=== PATIENT | female | born 1945 | race Caucasian/White ===

== ENCOUNTER 2020-02-13 09:02 | Outpatient (CLI) | payer MEDICARE, SELFPAY ==
--- NOTE | ~2020-02-13 | MM_ITS ---
EXAMINATION: MM screening mary BI w carrie HISTORY: Screening mammogram TECHNIQUE: Craniocaudal and mediolateral oblique 3-D tomosynthesis images were obtained and synthetic 2-D images were generated. CAD analysis was submitted and interpreted. COMPARISON: 09/12/2018, 11/27/2016, 10/09/2015 bilateral digital screening mammogram examinations BREAST PARENCHYMAL COMPOSITION: There are scattered areas of fibroglandular density. FINDINGS: Benign appearing circumscribed small intramammary lymph nodes are noted on the right. There is no evidence of suspicious mass, calcification, or architectural distortion to suggest malignancy in either breast. There has been no suspicious interval change. IMPRESSION: 1. No mammographic evidence of malignancy. 2. Recommend routine screening mammography in one year. BI-RADS Category 2: Benign finding(s). Reviewed, dictated and finalized at location A.
== END 2020-02-13 09:03 | disposition home or self-care (01) ==
LOC: ANHIMG 09:12
DX: Z12.31 Encounter for screening mammogram for malignant neoplasm of breast (principal)
CPT/HCPCS: 77063; 77067

== ENCOUNTER 2021-09-02 08:55 | Outpatient (CLI) | payer MEDICARE, SELFPAY ==
--- NOTE | ~2021-09-02 | MM_ITS ---
EXAMINATION: MM screening mary BI w carrie HISTORY: Screening TECHNIQUE: Craniocaudal and mediolateral oblique 3-D tomosynthesis images were obtained and synthetic 2-D images were generated. CAD analysis was submitted and interpreted. COMPARISON: Comparison to multiple prior studies sequentially, with oldest reviewed study dated 09/12. BREAST PARENCHYMAL COMPOSITION: There are scattered areas of fibroglandular density. FINDINGS: There is no evidence of suspicious mass, calcification, or architectural distortion to sugg est malignancy in either breast. There has been no suspicious interval change. IMPRESSION: 1. No mammographic evidence of malignancy. 2. Recommend routine screening mammography in one year. BI-RADS Category 1: Negative Reviewed, dictated and finalized at location A. TAL ADVERTISING SPECIALIST
== END 2021-09-02 08:56 | disposition home or self-care (01) ==
LOC: ANHIMG 08:58
PROVIDERS: Visit Provider Internal Medicine
DX: Z12.31 Encounter for screening mammogram for malignant neoplasm of breast (principal)
CPT/HCPCS: 77063; 77067

== ENCOUNTER 2023-03-19 10:02 | Outpatient (CLI) | payer MEDICARE, SELFPAY ==
--- NOTE | ~2023-03-19 | MM_ITS ---
EXAMINATION: MM screening mary BI w carrie HISTORY: Screening TECHNIQUE: Craniocaudal and mediolateral oblique 3-D tomosynthesis images were obtained and synthetic 2-D images were generated. CAD analysis was submitted and interpreted. COMPARISON: Comparison to multiple prior studies sequentially, with oldest reviewed study dated 09/18. BREAST PARENCHYMAL COMPOSITION: There are scattered areas of fibroglandular density. FINDINGS: There is no evidence of suspicious mass, calcification, or architectural distortion to sugg est malignancy in either breast. There has been no suspicious interval change. IMPRESSION: 1. No mammographic evidence of malignancy. 2. Recommend routine screening mammography in one year. BI-RADS Category 1: Negative Reviewed, dictated and finalized at location A.
== END 2023-03-19 10:03 | disposition home or self-care (01) ==
LOC: ANHIMG 10:05
PROVIDERS: PCP Internal Medicine; Visit Provider Internal Medicine
DX: Z12.31 Encounter for screening mammogram for malignant neoplasm of breast (principal)
CPT/HCPCS: 77063; 77067

== ENCOUNTER 2024-07-28 08:08 | Outpatient (CLI) | payer MEDICARE, SELFPAY ==
--- NOTE | ~2024-07-28 | MM_ITS ---
EXAMINATION: MM screening [facility] carrie HISTORY: Screening TECHNIQUE: Craniocaudal and mediolateral oblique 3-D tomosynthesis images were obtained and synthetic 2-D images were generated. CAD analysis was submitted and interpreted. COMPARISON: Comparison to multiple prior studies sequentially, with oldest reviewed study dated 10/08. BREAST PARENCHYMAL COMPOSITION: Not dense: There are scattered areas of fibroglandular density. FINDINGS: There is no evidence of suspicious mass, calcification, or architectural distortion to sugg est malignancy in either breast. There has been no suspicious interval change. IMPRESSION: 1. No mammographic evidence of malignancy. 2. Recommend routine screening mammography in one year. BI-RADS Category 1: Negative Reviewed, dictated and finalized at location A. MANAGER
--- OUTSIDE RECORDS SUMMARY | 2024-07-28 08:21 | XMS_ITS | Continuity of Care Document ---
Author Organization [facility] Address [address] [place] [address] [address] [place] [address] Phone Care Team Providers Care Technical Program Manager Name Role Phone Pancho Hoang MD, MD Unavailable Unavailable Procedures Procedure Date YAG PC AFTER CATARACT LASER SURGERY AFTER CATARACT LASER SURGERY EYE EXAM & TREATMENT DILATED EXAM RIGHT EYE DILATED EXAM LEFT EYE CATARACT SURG W/IOL, 1 STAGE CATARACT SURG W/IOL, 1 STAGE OFFICE/OUTPATIENT VISIT, NEW OPHTHALMIC BIOMETRY OPHTHALMIC BIOMETRY SPECIAL EYE EXAM, INITIAL SPECIAL EYE EXAM, INITIAL Advance Directives Directive Yes / No Effective Date File Name No Information Encounters Encounter Description Practice Location Reason(s) For Visit Diagnoses Date Provider Providers Copied on Encounter Ophthalmology [facility], [address] [place] [address], [id number], tel:[phone] [address] [place] [address] No Information 6 Natalya Deleon. [address], [address], [place], [place], [id number] , [place]. tel:[phone] Referring Provider: Pancho Hall, [address], [place], [place], [id number]. tel:[phone] Op[facility]mology [facility], [address] [place] [address], [place], [place], [id number], tel:[phone] [address] [place] [address] No Information 5 Natalya Deleon. [address], [place], [place], [id number] , [place]. tel:[phone] Referring Provider: Pancho Hall, [address], [place], [place], [id number]. tel:[phone] [facility], [address] [place] [address], [id number], tel:[phone] 478 [facility] No Information 5 Natalya Deleon. [address], [address], [place], [place], [id number] , [place]. tel:[phone] Referring Provider: Pancho Hall, [address], [place], [place], [id number]. tel:[phone] [facility], [address] [place] [address], [id number], [place] tel:[phone] [facility] No Information 4 Natalya Deleon. [address], [place], [place], [id number] , [place]. tel:[phone] Referring Provider: Pancho Hall, [address], [place], [place], [id number]. tel:[phone] [facility], [address] [place] [address], [place], [id number], [place] tel:[phone] [facility] No Information 4 Natalya Deleon. [address], [place], [place], [id number] , [place]. tel:[phone] Referring Provider: Pancho Hall, [address], [place], [place], [id number]. tel:[phone] OFFICE/OUTPA TIENT VISIT, [facility], [address] [place] [address], [id number], [place] tel:[phone] [facility] No Information 4 Natalya Deleon. [address], [place], [place], [id number] , [place]. tel:[phone] Referring Provider: Pancho Hoang MD P, [address], [place], [place], [id number]. tel:[phone] Family History Family Member Type Diagnosis Age At Onset No Information Payers Payer name Insurance type Covered constitution party ID Authorlilliama borisquique(s) [facility] [id number] Social History Type Description Quantity Date Captured Comments Sex Female Smoking Status No Information Chief Complaint And Reason For Visit No Information Plan Of Treatment Date Type Action Status No Information History Of Present Illness Encounter Date Complaint History Of Prese nt Illness No Information Instructions Date Instruction Additional Infor mation No Information Assessments Type Assessment Date No Information
--- OUTSIDE RECORDS SUMMARY | 2024-07-28 08:21 | XMS_ITS | Clinical Summary ---
Author Organization [facility] Address [address] [facility] [place] [address] Care Team Providers Care Legal Counsel Name Role Phone Miya Meeks MD Primary Care Provider [phone] Source Comments [facility],non-owned Affiliates and Associated Physician Practices is amultiple site organization consisting of ambulatory clinics and hospital sitesin [place], [place], [place] and [place]. This disclosure is being madepursuant to the Care Everywhere program and may not contain all information available regarding this patient. Last updated 18.[facility] Allergies Active Allergy Reactions Criticality Noted Date Comments Meperidine Itching 10/08/2010 Nsaids GI Discomfort 10/08/2010 Penicillins Unknown 10/08/2010 Medications * Be aware that medications may not be up to date on this document. Alwaysverify current medications with the patient. Medication Sig Dispensed Refills Start Date End Date Status irbesartan (AVAPRO) 300 MG tablet Take 1 (one) tablet by mouth once daily Instructed to take AM of surgery Active triamterene-hydroch lorothiazide (MAXZIDE-25) 37.5-25 MG tablet Take 1 (one) tablet by mouth once daily Active oxybutynin (DITROPAN) 5 MG tablet Take 1 (one) tablet by mouth once daily 10/08/2010 Active propranolol (INDERAL) 10 MG tablet Take 1 (one) tablet by mouth as needed Uses for anxiety 10/08/2010 Active famotidine (PEPCID) 20 MG tablet Take 1 (one) tablet by mouth every evening 10/08/2010 Active acetaminophen (TYLENOL) 500 MG tablet Take 1 (one) tablet by mouth at bedtime Maximum allowable Acetaminophen amount = 4 Grams / 24 hours. 10/08/2010 Active albuterol HFA (PROVENTIL;VENTOLIN ;PROAIR) 108 (90 BASE) MCG/ACT inhaler Inhale 2 (two) puffs by mouth every 4 hours as needed 10/08/2010 Active atorvastatin (LIPITOR) 40 MG tablet TAKE 1 TABLET BY MOUTH ONCE DAILY IN THE EVENING 09/30/2021 Active clotrimazole-betame thasone (LOTRISONE) 1-0.05 % cream APPLY CREAM TWICE DAILY FOR 2 WEEKS TO THE ARMS IN THE MORNING AND THE EVENINGS. 07/01/2021 Active metFORMIN (GLUCOPHAGE) 500 MG tablet TAKE 1 TABLET BY MOUTH TWICE DAILY WITH MORNING MEAL AND WITH EVENING MEAL. 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 01/20/2019 History of malignant neoplasm of endometrium Mild intermittent asthma 05/11/2015 Cyst of pancreas 02/04/2015 Overview (03/28/2024): Pancreatic cyst Family history of malignant neoplasm of gastrointestinal tract 10/15/2011 Urge incontinence of urine 01/13/2010 Static tremor 06/03/2009 Osteoarthrosis 11/14/1999 Resolved Problems Problem Noted Date Diagnosed Date Resolved Date Preoperative examination 10/08/201006/2023 Encounters Date Type Department Care Team Description 07/20/2024 11:45 AM FLIGHT AGENT Office Visit [facility] - INVENTORY AUDIT CLERK [address] [facility] [address] [place] [phone] Arabella Baltazar MD Special screening for malignant neoplasms, colon (Primary Dx); Well woman exam with routine gynecological exam; History of malignant neoplasm of endometrium 07/20/2024 Travel from Last 3 Months Social History Tobacco Use Types Packs/Day Years Used Date Smoking Tobacco: Never Smokeless Tobacco: Never Tobacco Cessation:Counseling Given: Not Answered Alcohol Use Standard Drinks/Week Comments No 0 (1 standard drink = 0.6 oz pur e alcohol) Sex and Gender Information Value Date Recorded Sex Assigned at Not on file Gender Identity Not on file Sexual Orientation Not on file Last Filed Vital Signs Vital Sign Reading Time Taken Comments Blood Pressure 123/81 07/20/2024 12:25 PM FLIGHT AGENT Pulse 71 07/19/2018 1:00 PM FLIGHT AGENT Temperature 36.6 ??C (97.8 ??F) 02/23/2020 2:09 PM CD T Respiratory Rate 22 10/09/2010 12:45 PM CDT Oxygen Saturation 94% 10/09/2010 12:45 PM CDT Inhaled Oxygen Concentration - - Weight 80.1 kg (176 lb 9.6 oz) 07/20/2024 12:25 PM FLIGHT AGENT Height 161.3 cm (5' 3.5 ) 12/19/2021 10:35 AM CD T Body Mass Index 30.79 12/19/2021 10:35 AM CDT Plan of Treatment Health Maintenance Due Date Last Done Comments BONE DENSITY TESTING 1944 DTAP/TDAP/TD VACCINES (1 - Tdap) 11/14/1963 PNEUMOCOCCAL VACCINE 50+ (1 of 2 - PCV) 11/14/1963 ZOSTER VACCINE (1 of 2) 1994 Respiratory Syncytial Virus (RSV) Vaccine Pt: or over 60 yrs (1 - 1-dose 75+ series) 11/14/2019 COVID-19 VACCINE ( - 2023- season) 2024 03/22/2023, 04/02/2022, 10/03/2021, Additional history exists DIABETES RETINOPATHY SCREENING 03/28/2024 DIABETES-FOOT EXAM WITH MONOFILAMENT 03/28/2024 DEPRESSION SCREENING 06/28/2024 DIABETES - URINE PROTEIN SCREENING 06/28/2024 08/11/2023, 08/11/2023, 05/18/2022, Additional history exists MEDICARE AWV ? CALENDAR YEAR 2024 DIABETES-SERUM CREATININE 08/11/20242023, 08/11/2023, 05/18/2022, Additional history exists DIABETES-HGB A1C 08/24/2024 02/22/2024, , 01/15/2023, Additional history exists INFLUENZA VACCINE Completed 03/09/2024, , 02/21/2021, Additional history exists HEPATITIS B VACCINE Aged Out No longe r eligible based on patient's age to complete this topic HIB VACCINE Aged Out No longer eligi ble based on patient's age to complete this topic HPV VACCINE Aged Out No longer eligi ble based on patient's age to complete this topic MENINGOCOCCAL (Group B) VACCINE Aged Out No longer eligible based on patient's age to complete this topic MENINGOCOCCAL VACCINE Aged Out No ezekiel alva eligible based on patient's age to complete this topic Procedures Procedure Name Priority Date/Time Associated Diagnosis Comments PAP IMAGE-GUIDED W HPV Routine 07/20/2024 12:49 PM FLIGHT AGENT History of malignant neoplasm of endometrium HPV DETECTION HIGH RISK JOSE ALEJANDRO Routine 07/20/2024 12:49 PM FLIGHT AGENT History of malignant neoplasm of endometrium from Last 3 Months Results * HPV DETECTION HIGH RISK JOSE ALEJANDRO (07/20/2024 12:49 PM FLIGHT AGENT) High Risk Human Papilloma Result Not detected Not detected 07/28/2024 5:45 AM FLIGHT AGENT [facility] High Risk Human Papilloma Interp 07/28/2024 5:45 AM FLIGHT AGENT [facility] Comment:High Risk Human Devin lloma Virus was Not Detected. Pathology/Cytolo gy MISCELLANEOUS SAMPLES / Unknown 07/20/2024 12:49 PM FLIGHT AGENT 07/21/2024 11:17 AM FLIGHT AGENT Narrative [facility] - 07/28/2024 5:45 AM FLIGHT AGENT Nucleic acid isolated from the specimen was analyzed with a nucleic acid amplification test (FDA approved Gen-Probe HPV Assay) to detect high risk human papilloma virus (Types: 16, 18, 31, 33, 35, 39, 45, 51, 52, 56, 58, 59, 66, and 68). ??The reference range is Not Detected . Comment: These test results should not be used as the sole basis for clinical assessment and treatment of patients. ??These results should always be correlated with other available data (cytology, histology, and clinical information). Arabella Baltazar MD LAB - MICROBIOLOGY O RDERASAMMY [facility] [address] [place] [address], [facility] [phone] * PAP IMAGE-GUIDED W HPV (07/20/2024 12:49 PM FLIGHT AGENT) Case Report Gynecologic Cytology Report ? Case: [id number] ? Authorizing Provider: ??Arabella Baltazar MD ? Collected: ? 07/20/2024 12:49 PM ? Ordering Location: ? [facility] - ??Received: ?07/21/2024 11:17 AM ? INVENTORY AUDIT CLERK ? First Screen: ?Les Molina, CT(ASCP) ? Specimen: ?THINPREP - IMAGE GUIDED, Cervix/Endocervix ? 07/24/2024 11:12 AM FLIGHT AGENT [facility] LMP yeasrs 07/24/2024 11:12 AM FLIGHT AGENT [facility] Menstrual Status Hysterectomy 2024 11:12 AM FLIGHT AGENT [facility] Specimen Adequacy Satisfactory for evaluation, endocervical/trans formation zone component present. 07/24/2024 11:12 AM FLIGHT AGENT [facility] Categorization Negative for intraepithelial lesion or malignancy. 07/24/2024 11:12 AM FLIGHT AGENT [facility] Interpretation SUPERVISOR PAINTING SHIPYARD Negative for intraepithelial lesion or malignancy. 07/24/2024 11:12 AM FLIGHT AGENT [facility] Pap Footnote The Pap Smear is a screening test. False positive and false negative results occur. Negative results do not preclude abnormalities, thus clinical correlation is required. This specimen was evaluated by the ThinPrep Imaging System along with an additional manual rescreening by a product management intern and/or pathologist. 07/24/2024 11:12 AM [facility] Embedded Images 11:12 AM [facility] Pathology/Cytolo gy MISCELLANEOUS SAMPLES / Unknown 07/20/2024 12:49 PM FLIGHT AGENT 07/21/2024 11:17 AM FLIGHT AGENT Arabella Baltazar MD LAB - PATHOLOGY/CYTO LOGY ORDERABLES Performing Organization Address City/State/[facility] Co de Phone Number [facility] [address] [phone] from Last 3 Months Care Teams Legal Counsel Relationship Specialty Start Date End Date Miya Meeks MD [address] [phone] PCP - General 10/01/10
--- OUTSIDE RECORDS SUMMARY | 2024-07-28 08:21 | XMS_ITS | Referral Summary ---
Author Organization [facility] Address [address] [facility] [place] [address] Care Team Providers Care Gun Number Name Role Phone Miya Meeks MD Primary Care Provider [phone] Source Comments [facility],non-owned Affiliates and Associated Physician Practices is amultiple site organization consisting of ambulatory clinics and hospital sitesin [place], [place], [place] and [place]. This disclosure is being madepursuant to the Care Everywhere program and may not contain all information available regarding this patient. Last updated 18.[facility] [employer] Encounters Date Type Department Care Team Description 07/20/2024 Travel 07/20/2024 11:45 AM HOTEL OR MOTEL MANAGER Office Visit [facility] - CHEMISTRY RESEARCH ASSISTANT [address] [place] [address] Arabella Baltazar MD Special screening for malignant neoplasms, colon (Primary Dx); Well woman exam with routine gynecological exam; History of malignant neoplasm of endometrium from Last 3 Months Allergies Active Allergy Reactions Criticality Noted Date [...] Diagnosed Date Resolved Date Preoperative examination 10/08/201006/2023 Social History Tobacco Use Types Packs/Day Years [...] Comments Blood Pressure 123/81 07/20/2024 12:25 PM HOTEL OR MOTEL MANAGER Pulse 71 07/19/2018 1:00 PM HOTEL OR MOTEL MANAGER Temperature 36.6 ??C (97.8 ??F) 02/23/2020 2:09 PM CD T Respiratory Rate 22 10/09/2010 12:45 PM CDT Oxygen Saturation 94% 10/09/2010 12:45 PM CDT Inhaled Oxygen Concentration - - Weight 80.1 kg (176 lb 9.6 oz) 07/20/2024 12:25 PM HOTEL OR MOTEL MANAGER Height 161.3 cm (5' 3.5 ) 12/19/2021 10:35 AM CD T Body Mass Index 30.79 12/19/2021 10:35 AM CDT Plan of Treatment Not on file Procedures Procedure Name Priority Date/Time Associated Diagnosis Comments PAP IMAGE-GUIDED W HPV Routine 07/20/2024 12:49 PM HOTEL OR MOTEL MANAGER History of malignant neoplasm of endometrium HPV DETECTION HIGH RISK JOSE ALEJANDRO Routine 07/20/2024 12:49 PM HOTEL OR MOTEL MANAGER History of malignant neoplasm of endometrium from Last 3 Months Results * HPV DETECTION HIGH RISK JOSE ALEJANDRO (07/20/2024 12:49 PM HOTEL OR MOTEL MANAGER) High Risk Human Papilloma Result Not detected Not detected 07/28/2024 5:45 AM HOTEL OR MOTEL MANAGER [facility] High Risk Human Papilloma Interp 07/28/2024 5:45 AM HOTEL OR MOTEL MANAGER [facility] Comment:High Risk Human Devin lloma Virus was Not Detected. Pathology/Cytolo gy MISCELLANEOUS SAMPLES / Unknown 07/20/2024 12:49 PM HOTEL OR MOTEL MANAGER 07/21/2024 11:17 AM HOTEL OR MOTEL MANAGER Narrative [facility] - 07/28/2024 5:45 AM HOTEL OR MOTEL MANAGER Nucleic acid isolated from the specimen was [...] Arabella Baltazar MD LAB - MICROBIOLOGY O RDERABLES [facility] [address] [facility] [place] [address], [facility] [phone] * PAP IMAGE-GUIDED W HPV (07/20/2024 12:49 PM HOTEL OR MOTEL MANAGER) Case Report Gynecologic Cytology Report ? Case: [id number] ? Authorizing Provider: ??Arabella Baltazar MD ? Collected: ? 07/20/2024 12:49 PM ? Ordering Location: ? [facility] - ??Received: ?07/21/2024 11:17 AM ? CHEMISTRY RESEARCH ASSISTANT ? First Screen: ?Jesse, Les, CT(ASCP) ? Specimen: ?THINPREP - IMAGE GUIDED, Cervix/Endocervix ? 07/24/2024 11:12 AM [facility] LMP yeasrs 07/24/2024 11:12 AM [facility] Menstrual Status Hysterectomy 2024 11:12 AM [facility] Specimen Adequacy Satisfactory for evaluation, endocervical/trans formation zone component present. 07/24/2024 11:12 AM [facility] Categorization Negative for intraepithelial lesion or malignancy. 07/24/2024 11:12 AM [facility] Interpretation PHOTOENGRAVING MACHINE OPERATOR/TENDER Negative for intraepithelial lesion or malignancy. 07/24/2024 11:12 AM [facility] Pap Footnote The Pap Smear is a screening test. False positive and false negative results occur. Negative results do not preclude abnormalities, thus clinical correlation is required. This specimen was evaluated by the ThinPrep Imaging System along with an additional manual rescreening by a branch customer service representative and/or pathologist. 07/24/2024 11:12 AM [facility] Embedded Images 11:12 AM [facility] Pathology/Cytolo gy MISCELLANEOUS SAMPLES / Unknown 07/20/2024 12:49 PM HOTEL OR MOTEL MANAGER 07/21/2024 11:17 AM HOTEL OR MOTEL MANAGER Arabella Baltazar MD LAB - PATHOLOGY/CYTO LOGY ORDERABLES [facility] [address] [facility] [place] [address], [facility] [phone] from Last 3 Months Care Teams Gun Number Relationship Specialty Start Date End Date Miya Meeks MD [address] [place] [phone] PCP - General 10/01/10
--- OUTSIDE RECORDS SUMMARY | 2024-07-28 08:21 | XMS_ITS | Continuity of Care Document ---
Author Organization [facility] Address [address] [place] [address] Phone Care Team Providers Care Firmware Architect Name Role Phone Reuben Sifuentes MD Unavailable Unavailable Allergies, Adverse Reactions, Alerts Substance Reaction Status Criticality morphine Unknown Active No Information PRESERVATIVE FREE Unknown Active No Informa tion MEPERIDINE HCL Unknown Active No Informatio n Medications Medication Instructions Dosage Effective Dates (start - stop) Status Comments Lipitor 40 mg tablet take 1 tablet by or al route every day 40 MG - Active Avapro 300 mg tablet take 1 tablet by or al route every day 300 MG - Active Maxzide-25mg 37.5 mg-25 mg tablet take 1 tablet by oral route every day - Active Ditropan XL 10 mg tablet,extended release take 1 tablet by oral route every day - Active propranolol 10 mg tablet take 2 tablet by oral route 3 times every day 20 MG - Active Flonase Allergy Relief 50 mcg/actuation nasal spray,suspension spray 1 - 2 spray by intranasal route every day in each nostril as needed 50-100 MCG - Active clotrimazole-betamet hasone 1 %-0.05 % topical cream apply by topical route 2 times every day for 2 weeks to the affected and surrounding areas of skin in the morning and evening 0.00 - Active Procedures Procedure Date OFFICE/OUTPATIENT VISIT [facility] Advance Directives Directive Yes / No Effective Date File Name No Information Encounters Encounter Description Practice Location Reason(s) For Visit Diagnoses Date Provider Providers Copied on Encounter OFFICE/OUTPA TIENT VISIT NEW [facility], [address], [place], [address], [place] tel:[phone] [facility] [place] Body mass index (BMI) 36.0-36.9, adultUnilateral primary osteoarthritis, left knee 8 Bear Alexis. [address], [place], [place], [id number] . tel: [phone] Referring Provider: Miya Parra, [address], [place], [address] . tel:[phone] [facility], [address], [place], [address], tel:[phone] [facility] [address] No Information 8 Mamie Tse. [address], [place], [id number] . tel: [phone] Family History Family Member Type Diagnosis Age At Onset Mother Problem (finding) Mother Problem (finding) Mother Problem (finding) cancer of colon (Cause Of ) Immunizations Vaccine Date Status Comments pneumococcal polysaccharide vaccine, 23 valent administered Source: Other Provid er Payers Payer name Insurance type Covered libertarian ID Authorlilliama ramirez(s) [facility] Ad[employer]age [place] [id number] Social History Type Description Quantity Date Captured Comments Alcohol Use Details Unknown Caffeine Use Details Unknown Tobacco Use Status Never smoked tobacco 2017 Smoking Status Never smoker Non-Smoking Tobacco Use Details : No Details Available : No Details Available Sex Female Vital Signs Date / Time: Height Weight BMI Pulse Rate Blood Pressure Temperature Respiratory Rate Body Surface Area Head Circumference Head Circ. Percentile [place]. Percentile BMI percentile Pulse Ox Inhaled Ox 1:43 PM 62.00 in 89.811 kg (198.00 lbs) 36.2 1 kg/m eter (2) 140/90 mm[Hg] Chief Complaint And Reason For Visit No Information Reason For Referral Reason For Referral No Information Plan Of Treatment Date Type Action Status Referral Ordered: RADEX KNE COMPL 4/MORE VIEWS LT ordered History Of Present Illness Encounter Date Complaint History Of Prese nt Illness No Information Functional Status Date Functional Assessmen t No Information Instructions Date Instruction Additional Infor mation Prescribed activity/ exercise education Related to Body mass index (BMI) 36.0-36.9, adult activity as tolerated Related to Unilateral primary osteoarthritis, left knee apply heating pad or ice as tole rated Related to Unilateral primary osteoarthritis, left knee Fall risk home exerc ise program handout provided Assessments Type Assessment Date assessment Body mass index (BMI) 36.0-36.9, adult assessment Unilateral primary osteoarthriti s, left knee Patient Care Teams Name Effective Dates (start - stop) Status Members No Information
--- OUTSIDE RECORDS SUMMARY | 2024-07-28 08:21 | XMS_ITS | Patient Health Summary ---
Author Organization [facility] Address [address] [place] [address] Care Team Providers Care Counter Sales Person Name Role Phone Miya Meeks MD Primary Care Provider [phone] Note from [facility],non-owned Affiliates and Associated Physician Practices is amultiple site organization consisting of ambulatory clinics and hospital sitesin [place], [place] and [place]. This disclosure is being madepursuant to the Care Everywhere program and may not contain all information available regarding this patient. Last updated 18.[facility] [employer] Allergies * Meperidine(Itching) * Nsaids(GI Discomfort) * Penicillins(Unknown) Medications * Be aware that medications may not be up to date on this document. Alwaysverify current medications with the patient. * irbesartan (AVAPRO) 300 MG tablet Take 1 (one) tablet by mouth once daily Instructed to take AM of surgery * triamterene-hydrochlorothiazide (MAXZIDE-25) 37.5-25 MG tablet Take 1 (one) tablet by mouth once daily * oxybutynin (DITROPAN) 5 MG tablet(Started 10/08/2010) Take 1 (one) tablet by mouth once daily * propranolol (INDERAL) 10 MG tablet(Started 10/08/2010) Take 1 (one) tablet by mouth as needed Uses for anxiety * famotidine (PEPCID) 20 MG tablet(Started 10/08/2010) Take 1 (one) tablet by mouth every evening * acetaminophen (TYLENOL) 500 MG tablet(Started 10/08/2010) Take 1 (one) tablet by mouth at bedtime Maximum allowable Acetaminophen amount = 4 Grams / 24 hours. * albuterol HFA (PROVENTIL;VENTOLIN;PROAIR) 108 (90 BASE) MCG/ACT inhaler (Started 10/08/2010) Inhale 2 (two) puffs by mouth every 4 hours as needed * atorvastatin (LIPITOR) 40 MG tablet(Started 09/30/2021) TAKE 1 TABLET BY MOUTH ONCE DAILY IN THE EVENING * clotrimazole-betamethasone (LOTRISONE) 1-0.05 % cream(Started 07/01/2021) APPLY CREAM TWICE DAILY FOR 2 WEEKS TO THE ARMS IN THE MORNING AND THE EVENINGS. * metFORMIN (GLUCOPHAGE) 500 MG tablet(Started 12/01/2021) TAKE 1 TABLET BY MOUTH TWICE DAILY WITH MORNING MEAL AND WITH EVENING MEAL. * montelukast (SINGULAIR) 10 MG tablet(Started 03/29/2020) TAKE 1 TABLET BY MOUTH ONCE DAILY IN THE EVENING * fluticasone propionate (FLONASE) 50 MCG/ACT nasal spray(Started 07/01/2021) USE 2 SPRAY(S) IN EACH NOSTRIL ONCE DAILY Active Problems Problem Noted Date Diagnosed Date [...] intermittent asthma 05/11/2015 Cyst of pancreas 02/04/2015 Family history of malignant neoplasm of gastrointestinal [...] Comments Blood Pressure 123/81 07/20/2024 12:25 PM STEEL WOOL MACHINE OPERATOR Pulse 71 07/19/2018 1:00 PM STEEL WOOL MACHINE OPERATOR Temperature 36.6 ??C (97.8 ??F) 02/23/2020 2:09 PM CD T Respiratory Rate 22 10/09/2010 12:45 PM CDT Oxygen Saturation 94% 10/09/2010 12:45 PM CDT Inhaled Oxygen Concentration - - Weight 80.1 kg (176 lb 9.6 oz) 07/20/2024 12:25 PM STEEL WOOL MACHINE OPERATOR Height 161.3 cm (5' 3.5 ) 12/19/2021 10:35 AM CD T Body Mass Index 30.79 12/19/2021 10:35 AM CDT Procedures * PAP IMAGE-GUIDED W HPV(Performed 07/20/2024) Performed for History of malignant neoplasm of endometrium * HPV DETECTION HIGH RISK JOSE ALEJANDRO(Performed 07/20/2024) Performed for History of malignant neoplasm of endometrium * ECHOCARDIOGRAM 2D WITH DOPPLER(Performed 05/24/2019) Performed for Dilated cardiomyopathy (HCC) * PAP IG RFLX HPV ASCU(Performed 05/16/2013) * PAP IG RFLX HPV ASCU(Performed 02/14/2013) * PAP IG RFLX HPV ASCU(Performed 10/18/2012) * XR CHEST 2VW(Performed 08/02/2012) Performed for Cough * PATHOLOGY/GENETICS HISTORICAL-ONBASE(Performed 04/19/2012) * PAP IG RFLX HPV ASCU(Performed 12/15/2011) * PAP IG RFLX HPV ASCU(Performed 09/08/2011) * PAP THINPREP(Performed 06/09/2011) * PAP THINPREP(Performed 03/10/2011) * PATHOLOGY/GENETICS HISTORICAL-ONBASE(Performed 10/30/2010) * LAB HISTORICAL RESULTS-ONBASE(Performed 10/29/2010) * XR CHEST 2VW(Performed 10/28/2010) Performed for Unspecified pre-operative examination * PATHOLOGY/GENETICS HISTORICAL-ONBASE(Performed 10/28/2010) * CARDIAC EKG ORDER(Performed 10/10/2010) * GLUCOSE - POINT OF CARE(Performed 10/09/2010) * GROSS + MICRO EXAM(Performed 10/09/2010) * US TRANSVAG ONLY(Performed 10/02/2010) Performed for Symptomatic menopausal or female climacteric states Results * HPV DETECTION HIGH RISK JOSE ALEJANDRO (07/20/2024 12:49 PM STEEL WOOL MACHINE OPERATOR) High Risk Human Papilloma Result Not detected Not detected 07/28/2024 5:45 AM STEEL WOOL MACHINE OPERATOR [facility] High Risk Human Papilloma Interp 07/28/2024 5:45 AM STEEL WOOL MACHINE OPERATOR [facility] Comment:High Risk Human Devin lloma Virus was Not Detected. Pathology/Cytolo gy MISCELLANEOUS SAMPLES / Unknown 07/20/2024 12:49 PM STEEL WOOL MACHINE OPERATOR 07/21/2024 11:17 AM STEEL WOOL MACHINE OPERATOR Narrative [facility] - 07/28/2024 5:45 AM STEEL WOOL MACHINE OPERATOR Nucleic acid isolated from the specimen was [...] Arabella Baltazar MD LAB - MICROBIOLOGY [facility] [address] [place] [address], [facility] [phone] * PAP IMAGE-GUIDED W HPV (07/20/2024 12:49 PM STEEL WOOL MACHINE OPERATOR) Pathologist [facility] Case Report Gynecologic Cytology Report ? Case: [id number] ? Authorizing Provider: ??Arabella Baltazar MD ? Collected: ? 07/20/2024 12:49 PM ? Ordering Location: ? [facility] - ??Received: ?07/21/2024 11:17 AM ? CHIEF EXECUTIVE OFFICER ? First Screen: ?Les Molina CT(ASCP) ? Specimen: ?THINPREP - IMAGE GUIDED, Cervix/Endocervix ? 07/24/2024 11:12 AM STEEL WOOL MACHINE OPERATOR [facility] LMP yeasrs 07/24/2024 11:12 AM STEEL WOOL MACHINE OPERATOR [facility] Menstrual Status Hysterectomy 2024 11:12 AM STEEL WOOL MACHINE OPERATOR [facility] Specimen Adequacy Satisfactory for evaluation, endocervical/trans formation zone component present. 07/24/2024 11:12 AM STEEL WOOL MACHINE OPERATOR [facility] Categorization Negative for intraepithelial lesion or malignancy. 07/24/2024 11:12 AM STEEL WOOL MACHINE OPERATOR [facility] Interpretation LOOPER FIXER Negative for intraepithelial lesion or malignancy. 07/24/2024 11:12 AM STEEL WOOL MACHINE OPERATOR [facility] Pap Footnote The Pap Smear is a screening test. False positive and false negative results occur. Negative results do not preclude abnormalities, thus clinical correlation is required. This specimen was evaluated by the ThinPrep Imaging System along with an additional manual rescreening by a ball sorter and/or pathologist. 07/24/2024 11:12 AM STEEL WOOL MACHINE OPERATOR [facility] Embedded Images 11:12 AM STEEL WOOL MACHINE OPERATOR [facility] Pathology/Cytolo gy MISCELLANEOUS SAMPLES / Unknown 07/20/2024 12:49 PM STEEL WOOL MACHINE OPERATOR 07/21/2024 11:17 AM STEEL WOOL MACHINE OPERATOR Arabella Baltazar MD LAB - PATHOLOGY/CYTO LOGY ORDERABLES [facility] [address] [place] [address], [facility] [phone] * ECHOCARDIOGRAM 2D WITH DOPPLER (05/24/2019 12:04 PM STEEL WOOL MACHINE OPERATOR) 05/24/2019 12:0 4 PM STEEL WOOL MACHINE OPERATOR Narrative [facility] - 05/24/2019 6:12 PM STEEL WOOL MACHINE OPERATOR [facility] at [address] [place] [address] Transthoracic Echocardiogram 2D, M-mode, Doppler, and Color Doppler Patient: MARION CONTRERAS MR number: [id number] Height: 63 in Weight: 199.5 lb BSA: 1.93 m?? Study date: 24-May-2019 : 1945 Age: 73 years Gender: Female Race: Allergies: MEPERIDINE, NSAIDS, PENICILLINS Operating Systems Specialist: ??JAZMIN Daniels Referring Physician: ??Miya Meeks MD Reading Physician: ??Carlos Bah MD Summary: - ??Clinical question: - ??Ventricular enlargement - ??History: - ??DM, HTN, HLD, obese - ??Left ventricle: - ??Systolic function was normal. Ejection fraction was estimated in the range of 65 % to 70 %. - ??There were no regional wall motion abnormalities. - ??Wall thickness was mildly increased. - ??Right ventricle: - ??The ventricle was mildly dilated. - ??Pulmonary arteries: - ??Systolic pressure was at the upper limits of normal. Estimated peak pressure was 35 mmHg. - ??Tricuspid valve: - ??There was mild regurgitation. Indications: Ventricular enlargement History: Prior history: DM, HTN, HLD, obese Procedure: The study was performed in the [facility]. The transthoracic approach was used. The study included complete 2D imaging, M-mode, complete spectral Doppler, and color Doppler. Systolic blood pressure was 128 mmHg. Diastolic blood pressure was 71 mmHg. Intravenous contrast (Definity) was administered. This was a technically difficult study. Left ventricle: Size was normal. Systolic function was normal. Ejection fraction was estimated in the range of 65 % to 70 %. There were no regional wall motion abnormalities. Wall thickness was mildly increased. Doppler: Left ventricular diastolic function parameters were normal. There was no evidence of elevated ventricular filling pressure by Doppler parameters. Aortic valve: The valve was trileaflet. Leaflets exhibited normal thickness and normal cuspal separation. Doppler: There was no stenosis. There was no regurgitation. Aorta: The root exhibited normal size. Mitral valve: Valve structure was normal. There was normal leaflet separation. Doppler: The transmitral velocity was within the normal range. There was no evidence for stenosis. There was no regurgitation. Left atrium: Size was normal. Right ventricle: The ventricle was mildly dilated. Systolic function was normal. Wall thickness was normal. Pulmonic valve: Leaflets exhibited normal thickness, no calcification, and normal cuspal separation. Doppler: There was no regurgitation. Pulmonary artery: The size was normal. Doppler: Systolic pressure was at the upper limits of normal. Estimated peak pressure was 35 mmHg. Tricuspid valve: The valve structure was normal. There was normal leaflet separation. Doppler: The transtricuspid velocity was within the normal range. There was no evidence for tricuspid stenosis. There was mild regurgitation. Right atrium: Size was normal. Systemic veins: IVC: The inferior vena cava was normal in size and course. Respirophasic changes were normal. Pericardium: The pericardium was normal in appearance. Measurement tables Other echo measurements (Reference normals) Estimated CVP ?? 3 mmHg ?? (--) System measurement tables 2D Ao Diam: 3 cm LVOT Diam: 2 cm LA Diam: 3.4 cm IVSd: 1.3 cm LVIDd: 4.1 cm LVIDs: 2.7 cm LVPWd: 1.1 cm CW AV VTI: 33.2 cm AV Vmax: 1.5 m/s AV Vmean: 1.1 m/s AV maxP.9 mmHg AV meanP mmHg PV Vmax: 1 m/s PV maxP.2 mmHg TR Vmax: 2.8 m/s MM TAPSE: 3.2 cm PW HAIR (VTI): 2.2 cm2 HAIR Vmax: 2.2 cm2 LVOT VTI: 22.4 cm LVOT Vmax: 1 m/s LVOT Vmean: 0.7 m/s LVOT maxP.2 mmHg LVOT meanP.5 mmHg MV E/A Ratio: 0.8 LATERAL E': 0.1 m/s LATERAL E/E': 10.8 SEPTAL E': 0.1 m/s SEPTAL E/E': 11.4 Prepared and signed by Carlos Bah MD Signed 24-May-2019 18:16:03 Procedure Note Carlos Bah MD - 05/24/2019 [facility] at [address] [place] [address] Transthoracic Echocardiogram 2D, M-mode, Doppler, and Color Doppler Patient: MARION CONTRERAS MR number: [id number] Height: 63 in Weight: 199.5 lb BSA: 1.93 m?? Study date: 24-May-2019 : 1945 Age: 73 years Gender: Female Race: Allergies: MEPERIDINE, NSAIDS, PENICILLINS Operating Systems Specialist: JAZMIN Daniels Referring Physician: Miya Meeks MD Reading Physician: Carlos Bah MD Summary: - Clinical question: - Ventricular enlargement - History: - DM, HTN, HLD, obese - Left ventricle: - Systolic function was normal. Ejection fraction was estimated in the range of 65 % to 70 %. - There were no regional wall motion abnormalities. - Wall thickness was mildly increased. - Right ventricle: - The ventricle was mildly dilated. - Pulmonary arteries: - Systolic pressure was at the upper limits of normal. Estimated peak pressure was 35 mmHg. - Tricuspid valve: - There was mild regurgitation. Indications: Ventricular enlargement History: Prior history: DM, HTN, HLD, obese Procedure: The study was performed in the [facility]. The transthoracic approach was used. The study included complete 2D imaging, M-mode, complete spectral Doppler, and color Doppler. Systolic blood pressure was 128 mmHg. Diastolic blood pressure was 71 mmHg. Intravenous contrast (Definity) was administered. This was a technically difficult study. Left ventricle: Size was normal. Systolic function was normal. Ejection fraction was estimated in the range of 65 % to 70 %. There were no regional wall motion abnormalities. Wall thickness was mildly increased. Doppler: Left ventricular diastolic function parameters were normal. There was no evidence of elevated ventricular filling pressure by Doppler parameters. Aortic valve: The valve was trileaflet. Leaflets exhibited normal thickness and normal cuspal separation. Doppler: There was no stenosis. There was no regurgitation. Aorta: The root exhibited normal size. Mitral valve: Valve structure was normal. There was normal leaflet separation. Doppler: The transmitral velocity was within the normal range. There was no evidence for stenosis. There was no regurgitation. Left atrium: Size was normal. Right ventricle: The ventricle was mildly dilated. Systolic function was normal. Wall thickness was normal. Pulmonic valve: Leaflets exhibited normal thickness, no calcification, and normal cuspal separation. Doppler: There was no regurgitation. Pulmonary artery: The size was normal. Doppler: Systolic pressure was at the upper limits of normal. Estimated peak pressure was 35 mmHg. Tricuspid valve: The valve structure was normal. There was normal leaflet separation. Doppler: The transtricuspid velocity was within the normal range. There was no evidence for tricuspid stenosis. There was mild regurgitation. Right atrium: Size was normal. Systemic veins: IVC: The inferior vena cava was normal in size and course. Respirophasic changes were normal. Pericardium: The pericardium was normal in appearance. Measurement tables Other echo measurements (Reference normals) Estimated CVP 3 mmHg (--) System measurement tables 2D Ao Diam: 3 cm LVOT Diam: 2 cm LA Diam: 3.4 cm IVSd: 1.3 cm LVIDd: 4.1 cm LVIDs: 2.7 cm LVPWd: 1.1 cm CW AV VTI: 33.2 cm AV Vmax: 1.5 m/s AV Vmean: 1.1 m/s AV maxP.9 mmHg AV meanP mmHg PV Vmax: 1 m/s PV maxP.2 mmHg TR Vmax: 2.8 m/s MM TAPSE: 3.2 cm PW HAIR (VTI): 2.2 cm2 HAIR Vmax: 2.2 cm2 LVOT VTI: 22.4 cm LVOT Vmax: 1 m/s LVOT Vmean: 0.7 m/s LVOT maxP.2 mmHg LVOT meanP.5 mmHg MV E/A Ratio: 0.8 LATERAL E': 0.1 m/s LATERAL E/E': 10.8 SEPTAL E': 0.1 m/s SEPTAL E/E': 11.4 Prepared and signed by Carlos Bah MD Signed 24-May-2019 18:16:03 Miya Meeks MD ECHO ORDERABLES Performing Organization Address City/[facility]/ZIP Co de Phone Number [facility] [address] [place] [address] * PAP IG RFLX HPV ASCU (05/16/2013) Only the most recent of5 resultswithin the time period is included. ENTIRE VAGINA / Unknown 05/16/2013 Narrative [facility] - 05/29/2013 3:56 PM STEEL WOOL MACHINE OPERATOR Clinical Information:->Endometrial cancer 3 years ago, KERRY, repeat pap Bebeto Yang MD LAB - PATHOLOGY/CYT OLOGY ORDERABLES Performing Organization Address [facility] Co de Phone Number [facility] [address] * XR CHEST PA AND LATERAL ROUTINE CHEST (08/02/2012 4:32 PM STEEL WOOL MACHINE OPERATOR) Only the most recent of2 resultswithin the time period is included. Anatomical Region Laterality Modality Chest Radiographic Katherine ging 08/02/2012 5:56 PM STEEL WOOL MACHINE OPERATOR Impressions 08/02/2012 5:56 PM STEEL WOOL MACHINE OPERATOR No acute findings. Narrative 08/02/2012 5:56 PM STEEL WOOL MACHINE OPERATOR Chest 2 views. History: Cough Findings: Comparison is made with 10/28/2010. The heart is normal is size. ?? The lungs are clear. Procedure Note Brandi Ramirez MD - 08/02/2012 Chest 2 views. History: Cough Findings: Comparison is made with 10/28/2010. The heart is normal is size. The lungs are clear. IMPRESSION No acute findings. Miya Meeks MD DIAGNOSTIC IMAGING ORDERABLES * PATHOLOGY/GENETICS HISTORICAL-ONBASE (04/19/2012) Only the most recent of3 resultswithin the time period is included. 04/19/2012 Narrative [facility] - 04/21/2012 1:58 PM CDT Bebeto Yang MD LAB - CHEMISTRY ORD ERABLES Performing Organization Address [facility] Co de Phone Number [facility] [address] [place], [place] [address] * PAP THINPREP (06/09/2011) Only the most recent of2 resultswithin the time period is included. Other (qualifier value) PART OF UTERINE CERVIX / Unknown 06/09/2011 Narrative [facility] - 06/11/2011 3:44 PM STEEL WOOL MACHINE OPERATOR Preferred Lab:->OTHER EXTERNAL LAB Bebeto Yang MD LAB - PATHOLOGY/CYT OLOGY ORDERABLES Performing Organization Address [facility] Co de Phone Number [facility] * LAB HISTORICAL RESULTS-ONBASE (10/29/2010) 10/29/2010 Bebeto Yang MD LAB - CHEMISTRY ORD ERABLES Performing Organization Address [facility] Co de Phone Number [facility] * CARDIAC EKG ORDER (10/10/2010 8:04 AM CDT) Narrative Procedure Note Document, Scanned - 10/10/2010 7:41 AM CDT Scanned Document CARDIAC SERVICES ORD ERABLES * (ABNORMAL) GLUCOSE - POINT OF CARE (10/09/2010 8:42 AM CDT) Glucose WB/POC 131(H) 75 - 110 mg/dl [facility] BLOOD SPECIMEN / Unknown 10/09/2010 8:42 AM CDT 10/10/2010 1:45 PM CDT Osman Irwin MD LAB - POINT OF CARE ORDERABLES Performing Organization Address [facility] Co de Phone Number [facility] [address] [place] [address] * GROSS + MICRO EXAM (10/09/2010 12:00 AM CDT) [facility] Surgeon DR. Josette IRWIN [facility] Grossed By ARTEM BALL [facility] Gross Report [facility] Comment: COPY TO: ?? INDICATION FOR PROCEDURE: ??Postmenopausal bleeding OPERATION: ??Hysteroscopy, D+C GROSS: The specimen is received in one container labeled with the patient's name and endometrial curettings. ??The specimen consists of a 6 x 5 x 2.5 cm aggregate of glistening gautam-red tissue admixed with blood and mucus. ??All submitted in A through F. /km ?? Microscopic Examination [facility] Comment: MICROSCOPIC: Sections show several fragments of endometrium displaying characteristics of endometrial carcinoma. ??Tumor is composed of glands formed by neoplastic cells displaying hyperchromasia of nuclei, increased N:C ratio, prominent nucleoli and mitoses. ??Tumor invades into the myometrium. 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 ?? JW/km Diagnosis [facility] Comment: DIAGNOSIS: 1. ?? Endometrial curettings: -- ?? 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, nuclear grade 2 JW/km Released by Brock KRISHNAMURTHY [facility] CPT Code 35098 [facility] SPECIMEN FROM ENDOMETRIUM OBTAINED BY CURETTAGE / Unknown 10/09/2010 10/09/2010 12:03 PM CDT Osman Irwin MD LAB - PATHOLOGY/CYTO LOGY ORDERABLES Performing Organization Address City/State/[facility] Co de Phone Number [facility] [address] [place] [address] * US TRANSVAG ONLY (10/02/2010 3:15 PM CDT) Anatomical Region Laterality Modality Ultrasound 10/02/2010 4:22 PM CDT Impressions 10/02/2010 4:23 PM CDT Abnormal endometrial as described. Rule out endometrial neoplasm. A notification was sent to the following physicians via the [employer] service. OSMAN IRWIN 4:23:24 PM ??10/02/2010 [facility] ??message Id: [id number] Narrative 10/02/2010 4:23 PM CDT Pelvic sonogram. HISTORY: Postmenopausal bleeding. Transvaginal views show a uterus measuring 8.2 x 4.2 x 5.4 cm. There is marked increase in endometrial thickness measuring about 21 mm. Possibility of endometrial neoplasm is raised in further investigation is recommended. Small fibroids are noted. The right ovary is 2.3 x 1.2 cm. ??A cyst measuring 9 mm is evident. The left ovary is 4.8 x 2.3 cm with a ovoid cyst present measuring about 2.7 cm in greatest diameter. Procedure Note Mina Lau MD - 10/02/2010 Pelvic sonogram. HISTORY: Postmenopausal bleeding. Transvaginal views show a uterus measuring 8.2 x 4.2 x 5.4 cm. There is marked increase in endometrial thickness measuring about 21 mm. Possibility of endometrial neoplasm is raised in further investigation is recommended. Small fibroids are noted. The right ovary is 2.3 x 1.2 cm. A cyst measuring 9 mm is evident. The left ovary is 4.8 x 2.3 cm with a ovoid cyst present measuring about 2.7 cm in greatest diameter. IMPRESSION Abnormal endometrial as described. Rule out endometrial neoplasm. A notification was sent to the following physicians via the [employer] service. OSMAN IRWIN 4:23:24 PM 10/02/2010 [employer] message Id: [id number] Osman Irwin MD ORDERABLES Care Teams Counter Sales Person Relationship Specialty Start Date End Date Miya Meeks MD [address] [place] [address] [phone] PCP - General 10/01/10
--- OUTSIDE RECORDS SUMMARY | 2024-07-28 08:21 | XMS_ITS | Continuity of Care Document ---
Author Organization [facility] Address [address] [place] [address] Phone Care Team Providers Care Bridge Engineer Name Role Phone Miya Meeks MD Unavailable Unavailable Allergies, Adverse Reactions, Alerts Substance Reaction Status Criticality Iodinated Contrast Media Active No Information NSAIDS (Non-Steroidal Anti-Inflammatory Drug) Other Active No Information sulindac Other Active No Information nabumetone Other Active No Information choline salicylate Other Active No Inform ation magnesium salicylate Other Active No Info rmation piroxicam Anaphylaxis Active No Information naproxen Anaphylaxis Active No Information ibuprofen Anaphylaxis Active No Information celecoxib Anaphylaxis Active No Information lisinopril Anaphylaxis Active No Information MEPERIDINE HCL Anaphylaxis Active No Informatio n penicillin G Anaphylaxis Active No Information Medications Medication Instructions Dosage Effective Dates (start - stop) Status Comments Albuterol Sulfate HFA 108 (90 Base) MCG/ACT Inhalation Aerosol Solutio INHALE 2 PUFFS BY MOUTH EVERY 4 TO 6 HOURS NEEDED - Active metFORMIN HCl 500 MG Oral Tablet TAKE 1 TABLET BY MOUTH TWICE DAILY WITH MORNING AND EVENING MEALS - Active triamterene 37.5 mg-hydrochlorothiaz pao 25 mg tablet Take 1 tablet by mouth once daily in the morning for BP - Active propranolol 10 mg tablet TAKE 1 TABLET BY MOUTH THREE TIMES DAILY NEEDED FOR TREMORS - Active Avapro 300 mg tablet Take 1 tablet by mouth once daily in the evening for BP - Active Arnuity Ellipta 100 mcg/actuation powder for inhalation inhale 1 puff by inhalation route every day at the same time each day 100 MCG - Active oxybutynin chloride 5 mg tablet Take 1 tablet by mouth twice daily - Active I am STOPPING oxybutynin ER 10mg. Clotrimazole-Betame thasone 1-0.05 % External Cream APPLY TWICE DAILY FOR 2 WEEKS TO THE ARMS IN THE MORNING AND THE EVENINGS. - Active Atorvastatin Calcium 40 MG Oral Tablet TAKE 1 TABLET BY MOUTH ONCE DAILY IN THE EVENING 40 MG - Active Fluticasone Propionate 50 MCG/ACT Nasal Suspension Use 2 spray(s) in each nostril once daily 2 spray - Active famotidine 20 mg tablet take 1 tablet by oral route 2 times every day 30 minutes before breakfast and dinner as needed - Active docusate sodium 100 mg tablet take 1 tablet by oral route every day at bedtime as needed 100 MG - Active senna 8.6 mg capsule - Active Vitamin B-12 50 mcg tablet - Active Excedrin Extra Strength 250 mg-250 mg-65 mg tablet - Active aspirin 81 mg tablet,delayed release take 1 tablet by oral route every day 81 MG - Active ChlorTabs 4 mg tablet take 1 tablet by oral route every 4 - 6 hours as needed 4 MG - Active Coricidin HBP 2 mg-15 mg-500 mg tablet - Active Tylenol Extra Strength 500 mg Tab take 2 tablet (1000MG) by oral route every 6 hours as needed 1000 MG - Active Procedures Procedure Date HEMOGLOBIN A1C HGA1C, GLYCO ROUTINE VENIPUNCTURE OFFICE [id number] SYST BP LT 130 MM HG DIAST BP < 80 MM HG PPPS, subseq visit CBC, INC PLATELETS AND DIFFERENTIAL COMPREHEN METABOLIC PANEL CMP HEMOGLOBIN A1C HGA1C, GLYCO LIPID PANEL MICROALBUMIN, QN (URINE) CREATININE, (U-R) ROUTINE VENIPUNCTURE OFFICE [id number] HEMOGLOBIN A1C HGA1C, GLYCO ROUTINE VENIPUNCTURE OFFICE [id number] CBC, INC PLATELETS AND DIFFERENTIAL COMPREHEN METABOLIC PANEL [facility] 2 HEMOGLOBIN A1C HGA1C, GLYCO LIPID PANEL MICROALBUMIN, QN (URINE) CREATININE, (U-R) ROUTINE VENIPUNCTURE HEMOGLOBIN A1C HGA1C, GLYCO ROUTINE VENIPUNCTURE OFFICE [id number] Admin influenza virus vac Flu Vac, quad (RIV4), Preservative And A ntibiotic Free IM BASIC METABOLIC PANEL(BMP) VITAMIN D, 25-HYDROXY ROUTINE VENIPUNCTURE PPPS, subseq visit CBC, INC PLATELETS AND DIFFERENTIAL COMPREHEN METABOLIC PANEL [facility] 1 HEMOGLOBIN A1C HGA1C, GLYCO LIPID PANEL MICROALBUMIN, QN (URINE) CREATININE, (U-R) ROUTINE VENIPUNCTURE OFFICE [id number] CBC, INC PLATELETS AND DIFFERENTIAL COMPREHEN METABOLIC PANEL [facility] 0 HEMOGLOBIN A1C HGA1C, GLYCO LIPID PANEL CREATININE, (U-R) MICROALBUMIN, QN (URINE) ROUTINE VENIPUNCTURE HEMOGLOBIN A1C HGA1C, GLYCO ROUTINE VENIPUNCTURE PPPS, subseq visit Advance Directives Directive Yes / No Effective Date File Name Life Support Not Answered N/A N/A Intubation Not Answered N/A N/A Antibiotics Not Answered N/A N/A IV Fluid Support Not Answered N/A N/A Tube Feed Not Answered N/A N/A Other Directive N/A N/A WARNING:The information contained in this section is historical and is provided for information only and does not constitute a legal document or any assurance that the information is still accurate. Please verify the information with the blakely of the legal document before using it for clinical purposes. Encounters Encounter Description Practice Location Reason(s) For Visit Diagnoses Date Provider Providers Copied on Encounter [facility] [address], [place], [place], [address] , tel: [phone] [facility] No Information 5 Jeanna Holliday. [address] [place] [address], [place] [address], [place], [place], [address], . tel:[phone] [facility], [address], [place], [place], [address] , tel: [phone] [facility] No Information 4 Jeannasonali Holliday. [address] [place] [address], [place] [address], [place], [place], [address], . [phone] [facility] [address], [place], [place], [address] , tel: [phone] [facility] No Information 4 Jeanna Holliday. [address] [place] [address], [place] [address], [place], [place], [address], . tel:[phone] [facility] [address], [place], [place], [address] , tel: [phone] [facility] No Information 4 Jeanna Holliday. [address] [place] [address], [place], [place], [address], . tel:[phone] OFFICE [id number] TAILED [facility], [address], [place], [place], [address] , tel: [phone] [facility] 6 month follow up (chief complaint)C hronic Conditions (chief complaint) Body mass index [BMI] 32.0-32.9, adultType 2 diab with mild nonp rtnop without macular edema, unspEssential (primary) hypertensionHi gh cholesterolMil d intermittent asthma, uncomplicatedI mmunization counseling 4 Roberto Acosta. [address] [place] [address], [place] [address], [place], [place], [address], [place]. tel:[phone] Referring Provider: Miya Parra, [address] [place] [address], [place], [address] . tel:[phone] [facility], [address], [place], [place], [address] , [place] tel: [phone] [facility] No Information 4 Roberto Acosta. [address] [place] [address], [place], [place], [address], [place]. tel:[phone] [facility], [address], [place], [place], [address] , [place] tel: [phone] [facility] No Information 4 Jeanna Holliday. [address] [place] [address], [place], [place], [address], [place]. tel:[phone] [facility], [address], [place], [place], [address] , [place] tel: [phone] [facility] No Information 4 Jeanna Holliday. [address] [place] [address], [place], [place], [address], [place]. tel:[phone] [facility], [address], [place], [place], [address] , [place] tel: [phone] [facility] No Information 4 Jeanna Holliday. [address] [place] [address], [place], [place], [address], [place]. tel:[phone] [facility], [address], [place], [place], [address] , [place] tel: [phone] [facility] Medicare preventive (chief complaint)f ollow up (chief complaint)C hronic Conditions (chief complaint) Encntr for general adult medical exam w/o abnormal findingsFamily history of colon cancerPersonal history of malignant neoplasm of other parts of uterusEssentia l (primary) hypertensionHi gh cholesterolTyp e 2 diabetes mellitus with other specified complication, without long-term current use of insulinAtheros clerosis of aortaPolyneuro venkatesh due to type 2 diabetes mellitusEssent ial tremorUrge incontinenceMi ld intermittent asthma, uncomplicatedB mio mass index [BMI] 33.0-33.9, adultGastro-es ophageal reflux disease without esophagitis 4 Jeanna Holliday. [address] [place] [address], [place] [address], [place], [place], [address], [place]. tel:[phone] Referring Provider: Miya Parra, [address] [place] [address], [place], [address] . tel:[phone] [facility], [address], [place], [place], [address] , tel:[phone] [facility] No Information 3 Jeanna Holliday. [address] [place] [address], [place], [place], [address], [place]. tel:[phone] [facility], [address], [place], [place], [address] , tel:[phone] [facility] No Information 3 Jeanna Holliday. [address] [place] [address], [place] [address], [place], [place], [address], . tel:[phone] [facility], [address], [place], [place], [address] , tel:[phone] [facility] No Information 3 Jeanna Holliday. [address] [place] [address], [place] [address], [place], [place], [address], [place]. tel:[phone] OFFICE [id number] [facility], [address], [place], [place], [address] , tel:[phone] [facility] Patient encounter (chief complaint)C hronic Conditions (chief complaint) Body mass index [BMI] 34.0-34.9, adultType 2 diab with mild nonp rtnop without macular edema, unspType 2 diabetes mellitus with other specified complication, without long-term current use of insulinAtheros clerosis of aortaHigh cholesterolEss ential (primary) hypertensionMi ld intermittent asthma, uncomplicatedG marvel-esophage al reflux disease without esophagitis 3 Roberto Acosta. [address] [place] [address], [address], [place], [place], [address], [place]. tel:[phone] Referring Provider: Miya Parra, [address] [place] [address], [place], [address] . tel:[phone] OFFICE [id number] [facility], [address], [place], [place], [address] , [place] tel:[phone] [facility] follow up (chief complaint)C hronic Conditions (chief complaint) Body mass index [BMI] 35.0-35.9, adultEssential (primary) hypertensionHi gh cholesterolEss ential tremorPolyneur opathy due to type 2 diabetes mellitusType 2 diabetes mellitus with other specified complication, without long-term current use of insulinAtheros clerosis of aortaType 2 diab with mild nonp rtnop without macular edema, unspUrge incontinenceMi ld intermittent asthma, uncomplicatedM orbid obesity, unspecified obesity typeFamily history of colon cancer 2 Jeanna Holliday. [address] [place] [address], [place] [address], [place], [place], [address], [place]. tel:[phone] Referring Provider: Miya Parra, [address] [place] [address], [place], [address] . tel:[phone] [facility] [address], [place], [place], [address] , [place] tel:[phone] [facility] Type 1 diabetes mellitus without complicationTy pe 2 diabetes mellitus without complications 2 Jeanna Holliday. [address] [place] [address], [place] [address], [place], [place], [address], [place]. tel:[phone] [facility] [address], [place], [place], [address] , [place] tel: [phone] [facility] No Information 2 Jeanna Holliday. [address] [place] [address], [place], [place], [address], [place]. tel:[phone] [facility], [address], [place], [place], [address] , [place] tel: [phone] [facility] Personal history of malignant neoplasm of other parts of uterus 2 Jeanna Holliday. [address] [place] [address], [facility] [address], [place], [place], [address], [place]. tel:[phone] [facility], [address], [place], [place], [address] , [place] tel: [phone] [facility] No Information 2 Jeanna Holliday. [address] [place] [address], [place], [place], [address], [place]. tel:[phone] OFFICE [id number] TAILED [facility], [address], [place], [place], [address] , [place] tel: [phone] [facility] FOLLOW UP (chief complaint)C hronic Conditions (chief complaint) Body mass index [BMI] 33.0-33.9, adultType 2 diab with mild nonp rtnop without macular edema, unspEssential (primary) hypertensionHi gh cholesterolGas tro-esophageal reflux disease without esophagitisFam whit history of colon cancerType 2 diabetes mellitus with diabetic polyneuropathy 1 Roberto Acosta. [address] [place] [address], [place] [address], [place], [place], [address], [place]. [phone] Referring Provider: Miya Parra [address] [place] [address], [place], [address] . tel:[phone] [facility], [address], [place], [place], [address] , [place] tel: [phone] [facility] No Information 1 Jeanna Holliday. [address] [place] [address], [place] [address], [place], [place], [address], . tel:[phone] [facility], [address], [place], [place], [address] , tel:[phone] [facility] Type 2 diabetes mellitus without complications 1 Jeanna Holliday. [address] [place] [address], [place], [place], [address], . tel:[phone] [facility], [address], [place], [place], [address] , tel:[phone] [facility] No Information 1 Jeanna Holliday. [address] [place] [address], [place], [place], [address], . tel:[phone] Referring Provider: Miya Parra, [address] [place] [address], [place], [address] . tel:[phone] [facility], [address], [place], [place], [address] , tel:[phone] [facility] Essential (primary) hypertensionVi tamin D deficiency 1 Jeanna Holliday. [address] [place] [address], [place], [place], [address], . tel:[phone] Referring Provider: Miya Parra, [address] [place] [address], [place], [address] . tel:[phone] [facility] [address], [place], [place], [address] , tel:[phone] [facility] Medicare preventive (chief complaint)f ollow up (chief complaint)C hronic Conditions (chief complaint) Body mass index (BMI) 35.0-35.9, adultEncounter for general adult medical examination without abnormal findingsEssent ial (primary) hypertensionHi gh cholesterolGas tro-esophageal reflux disease without esophagitisEss ential tremorPolyneur opathy due to type 2 diabetes mellitusType 2 diabetes mellitus with other specified complication, without long-term current use of insulinAtheros clerosis of aortaFamily history of colon cancerMorbid obesity, unspecified obesity type Apr-0 1 Jeanna Holliday. [address] [place] [address], [place] [address], [place], [place], [address], [place]. tel:[phone] Referring Provider: Miya Parra, [address] [place] [address], [place], [address] . tel:[phone] [facility], [address], [place], [place], [address] , [place] tel: [phone] [facility] No Information Aug- 1 Jeanna Holliday. [address] [place] [address], [place] [address], [place], [place], [address], [place]. tel:[phone] [facility], [address], [place], [place], [address] , [place] tel: [phone] [facility] Basal cell carcinoma (BCC) in situ of skin Aug-0 1 Jeanna Holliday. [address] [place] [address], [place] [address], [place], [place], [address], [place]. tel:[phone] [facility], [address], [place], [place], [address] , [place] tel: [phone] [facility] Type 2 diab with mild nonp rtnop without macular edema, unsp Mar- 0 Jeanna Holliday. [address] [place] [address], [place] [address], [place], [place], [address], [place]. tel:[phone] [facility], [address], [place], [place], [address] , [place] tel: [phone] [facility] No Information 0 Jeanna Holliday. [address] [place] [address], [place] [address], [place], [place], [address], [place]. [phone] OFFICE [id number] TAILED [facility], [address], [place], [place], [address] , [place] tel: [phone] [facility] follow up (chief complaint)C hronic Conditions (chief complaint) Essential (primary) hypertensionHi gh cholesterolGas tro-esophageal reflux disease without esophagitisTyp e 2 diabetes mellitus with background retinopathy without macular edemaPolyneuro venkatesh due to type 2 diabetes mellitusType 2 diabetes mellitus with other specified complication, without long-term current use of insulinAtheros clerosis of aortaBody mass index (BMI) 36.0-36.9, adultEssential tremorMorbid obesity, unspecified obesity type 0 Jeanna Holliday. [address] [place] [address], [address], [place], [place], [address], [place]. [phone] Referring Provider: Miya Parra, [address] [place] [address] [facility], [place], [address] . tel:[phone] [facility] [address], [place], [place], [address] , tel: [phone] [facility] Malignant neoplasm of endometrium 0 Jeanna Holliday. [address] [place] [address], [address], [place], [place], [address], [place]. [phone] [facility], [address], [place], [place], [address] , [place] tel: [phone] [facility] Basal cell adenocarcinoma 0 Jeanna Holldiay. [address] [place] [address], [place] [address], [place], [place], [address], [place]. [phone] [facility], [address], [place], [place], [address] , [place] tel: [phone] [facility] SnoringBasal cell carcinoma (BCC) of skin of other part of face 9 Jeanna Holliday. [address] [place] [address], [address], [place], [place], [address], [place]. tel:[phone] [facility], [address], [place], [place], [address] , tel: [phone] [facility] Medicare preventive (chief complaint)C hronic Conditions (chief complaint) Body mass index (BMI) 36.0-36.9, adultEncounter for general adult medical examination without abnormal findingsHistor y of endometrial cancerFamily history of colon cancerType 2 diabetes mellitus with background retinopathy without macular edemaEssential (primary) hypertensionHi gh cholesterolMor bid obesity, unspecified obesity typePolyneurop athy due to type 2 diabetes mellitusSkin lesion of faceEssential tremorUrge incontinenceAl lergic rhinitis, unspecifiedCou ghAtherosclero sis of aortaType 2 diabetes mellitus with other specified complication, without long-term current use of insulinLeft ventricular enlargement 9 Mejia Mims Karla. [address] [place] [address], [place], [place], [address], [place]. tel:[phone] Referring Provider: Miya Parra, [address] [place] [address], [place], [address] . 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 [address] [place] [address], [place], [place], [address], [place]. tel:[phone] [facility], [address], [place], [place], [address] , [phone] [facility] Age-related nuclear cataract of left eye Jeanna Holliday. [address] [place] [address], [place], [place], [address], [place]. tel:[phone] [facility], [address], [place], [place], [address] , [phone] [facility] Body mass index (BMI) 36.0-36.9, adultEssential (primary) hypertensionHi gh cholesterolGas tro-esophageal reflux disease without esophagitisTyp e 2 diabetes mellitus without complicationsM ild intermittent asthma, uncomplicatedU nspecified osteoarthritis , unspecified siteEssential tremorHistory of endometrial cancerFamily history of colon cancerVitamin D deficiencyMorb id obesity, unspecified obesity type 9 Jeanna Holliday. [address] [place] [address], [place] [address], [place], [place], [address], [place]. tel:[phone] Referring Provider: Miya Parra, [address] [place] [address], [place], [address] . tel:[phone] [facility], [address], [place], [place], [address] , [place] tel: [phone] [facility] Urge incontinence 9 Jeanna Holliday. [address] [place] [address], [place], [place], [address], [place]. tel:[phone] [facility], [address], [place], [place], [address] , tel: [phone] [facility] Other secondary cataract, bilateral 8 Jeanna Holliday. [address] [place] [address], [place] [address], [place], [place], [address], [place]. tel:[phone] [facility], [address], [place], [place], [address] , [place] tel:[phone] Administratio n Body mass index (BMI) 36.0-36.9, adultEncounter for general adult medical examination without abnormal findingsEssent ial (primary) hypertensionHi gh cholesterolTyp e 2 diabetes mellitus without complicationsH istory of endometrial cancerFamily history of colon cancerGastro-e sophageal reflux disease without esophagitisEss ential tremorMild intermittent asthma, uncomplicatedU nspecified osteoarthritis , unspecified siteMorbid obesity, unspecified obesity type 8 Jeanna Holliday. [address] [place] [address], [place] [address], [place], [place], [address], [place]. tel:[phone] Referring Provider: Miya Parra, [address] [place] [address], [place], [address] . tel:[phone] [facility], [address], [place], [place], [address] , tel: [phone] [facility] Pain of left calfType 2 diabetes mellitus without complicationsH igh cholesterol Roberto Acosta. [address] [place] [address], [place], [place], [address], . tel:[phone] Referring Provider: Miya Parra, [address] [place] [address], [place], [address] . tel:[phone] [facility], [address], [place], [place], [address] , [place] tel:[phone] [facility] Personal history of malignant neoplasm of oth prt uterus Jeanna Holliday. [address] [place] [address], [place], [place], [address], [place]. tel:[phone] [facility], [address], [place], [place], [address] , tel: [phone] [facility] Essential (primary) hypertensionHi gh cholesterolTyp e 2 diabetes mellitus without complicationsG marvel-esophage al reflux disease without esophagitisCys t of pancreasHistor y of endometrial cancerFamily history of colon cancerEncounte r for immunization Jeanna Holliday. [address] [place] [address], [place], [place], [address], . tel:[phone] Referring Provider: Miya Parra, [address] [place] [address], [place], [address] . tel:[phone] [facility], [address], [place], [place], [address] , [place] tel: [id number] [facility] Essential (primary) hypertensionHi gh cholesterolTyp e 2 diabetes mellitus without complicationsG marvel-esophage al reflux disease without esophagitisEss ential tremorMild intermittent asthma, uncomplicatedM orbid obesity, unspecified obesity typeFamily history of colon cancer Jeanna Holliday. [address] [place] [address], [place], [place], [address], [place]. tel:[phone] Referring Provider: Miya Parra, [address] [place] [address], [place], [address] . tel:[phone] [facility], [address], [place], [place], [address] , [place] tel: [phone] Administratio n High cholesterol 0 7 Jeanna Holliday. [address] [place] [address], [place], [place], [address], [place]. tel:[phone] [facility], [address], [place], [place], [address] , tel: [phone] [facility] Personal history of malignant neoplasm of oth prt uterus 6 Brunts Amanda. [address] [place] [address], [id number]. tel:[phone] [facility], [address], [place], [place], [address] , [place] tel: [phone] [facility] Personal history of malignant neoplasm of oth prt uterus 6 Jeanna Holliday. [address] [place] [address], [place], [place], [address], [place]. tel:[phone] [facility], [address], [place], [place], [address] , tel: [phone] [facility] Family history of malignant neoplasm of digestive organs 6 Brunts Amanda. [address] [place] [address], [place], [place], [address]. tel:[phone] [facility], [address], [place], [place], [address] , tel: [phone] [facility] Essential (primary) hypertensionPu re hypercholester olemiaType 2 diabetes mellitus without complicationsG marvel-esophage al reflux disease without esophagitisEss ential tremorMild intermittent asthma, uncomplicatedC yst of pancreasMorbid obesity, unspecified obesity typeFamily history of colon cancer 6 Jeannasonali Holliday. [address] [place] [address], [place] [address], [place], [place], [address], [place]. tel:[phone] Referring Provider: Miya Parra, [address] [place] [address], [place], [address] . tel:[phone] [facility], [address], [place], [place], [address] , [place] tel:[phone] [facility] Cyst of pancreas 6 Jeannasonali Holliday. [address] [place] [address], [place] [address], [place], [place], [address], [place]. tel:[phone] [facility], [address], [place], [place], [address] , [place] tel:[phone] [facility] No Information 5 Jeannasonali Holliday. [address] [place] [address], [place] [address], [place], [place], [address], [place]. tel:[phone] [facility], [address], [place], [place], [address] , [place] tel:[phone] [facility] Other secondary cataract, bilateral 5 Jeannasonali Holliday. [address] [place] [address], [place] [address], [place], [place], [address], [place]. tel:[phone] [facility], [address], [place], [place], [address] , [place] tel:[phone] [facility] Essential (primary) hypertensionPu re hypercholester olemiaType 2 diabetes mellitus without complicationsM ild intermittent asthma, uncomplicatedG marvel-esophage al reflux disease without esophagitisCys t of pancreasMorbid obesity, unspecified obesity typeFamily history of colon cancer 5 Jeanna Holliday. [address] [place] [address], [place] [address], [place], [place], [address], [place]. tel:[phone] Referring Provider: Miya Parra, [address] [place] [address], [place], [address] . tel:[phone] [facility], [address], [place], [place], [address] , [place] tel: [phone] [facility] Urge incontinencePu re hypercholester olemiaUnspecif ied osteoarthritis , unspecified siteGastro-eso phageal reflux disease without esophagitisEss ential (primary) hypertensionTy pe 2 diabetes mellitus without complicationsM ild intermittent asthma, uncomplicatedF amily history of colon cancerMorbid obesity, unspecified obesity typeEssential tremorCyst of pancreasHistor y of endometrial cancer 5 Jeannasonali Holliday. [address] [place] [address], [place] [address], [place], [place], [address], [place]. tel:[phone] [facility], [address], [place], [place], [address] , tel: [phone] [facility] DM w/o complication type II 5 Jeannasonali Holliday. [address] [place] [address], [place] [address], [place], [place], [address], [place]. tel:[phone] [facility], [address], [place], [place], [address] , [place] tel: [phone] [facility] Diabetes Mellitus Type 2, Uncomplicated 5 Jeannasonali Holliday. [address] [place] [address], [place] [address], [place], [place], [address], [place]. tel:[phone] [facility], [address], [place], [place], [address] , [place] tel: [phone] [facility] Benign Essential TremorFamily history of malignant neoplasm of gastrointestin al tractGERD 5 Jeannasonali Holliday. [address] [place] [address], [facility] [address], [place], [place], [address], [place]. tel:[phone] [facility], [address], [place], [place], [address] , [place] tel: [phone] [facility] HTNHypercholes terolemiaDiabe rochelle mellitus without mention of complication, type II or unspecified type, uncontrolledBe nign Essential TremorObesity, MorbidPersonal history of malignant neoplasm of other parts of uterusFamily history of malignant neoplasm of gastrointestin al tractCyst of pancreas Sep-2 0- 5 Jeanna Holliday. [address] [place] [address], [facility] [address], [place], [place], [address], . tel:[phone] Referring Provider: Miya Parra, [address] [place] [address], [place], [address] . tel:[phone] [facility], [address], [place], [place], [address] , [place] tel: [phone] [facility] Nipple painBreast cancer screening 6 5 Justin Vila. [address] [place] [address], [place] [address], [place], [place], [address], . tel:[phone] Referring Provider: Miya Parra, [address] [place] [address], [place], [address] . tel:[phone] [facility], [address], [place], [place], [address] , [place] tel: [phone] [facility] Personal history of malignant neoplasm of other parts of uterus 5 Jeanna Holliday. [address] [place] [address], [place] [address], [place], [place], [address], . tel:[phone] [facility], [address], [place], [place], [address] , tel: [phone] [facility] Diabetes mellitus without mention of complication, type II or unspecified type, uncontrolledPu re hypercholester olemiaMorbid obesityEsophag eal refluxBenign Essential TremorUnspecif ied essential hypertension Feb-0 3 4 Jeanna Holliday. [address] [place] [address], [place] [address], [place], [place], [address], . tel:[phone] Referring Provider: Miya Parra, [address] [place] [address], [place], [address] . tel:[phone] [facility], [address], [place], [place], [address] , [place] tel: [phone] [facility] Breast screening, unspecified 0-201 4 Manish Patel. [address] [place] [address], [address], [place], [place], [address]. [phone] [facility], [address], [place], [place], [address] , [place] tel: [phone] [facility] History of fall/At Risk For FallingScreeni ng for unspecified conditionNEED FOR PROPHYLACTIC VACCINATION WITH COMBINED DIPHTHERIA-TET ANUS-PERTUSSIS (DTP) (DTAP) VACCINEHTNHype rcholesterolem iaDiabetes Mellitus Type 2, UncomplicatedO besity, MorbidGERDAsth maBenign Essential TremorPersonal history of malignant neoplasm of other parts of uterus 4 Jeanna Holliday. [address] [place] [address], [place] [address], [place], [place], [address], [place]. tel:[phone] Referring Provider: Miya Parra, [address] [place] [address], [place], [address] . tel:[phone] [facility], [address], [place], [place], [address] , [place] tel: [phone] [facility] Diabetes Mellitus Type 2, Uncomplicated Apr- 0- 3 Jeanna Holliday. [address] [place] [address], [place], [place], [address], [place]. [phone] [facility], [address], [place], [place], [address] , [place] tel: [phone] [facility] No Information 6201 3 Jeanna Holliday. [address] [place] [address], [place] [address], [place], [place], [address], [place]. tel:[phone] [facility], [address], [place], [place], [address] , [place] tel: [phone] [facility] No Information 3 Jeanna Holliday. [address] [place] [address], [place], [place], [address], [place]. [phone] Referring Provider: Miya Parra, [address] [place] [address], [place], [address] . tel:[phone] [facility], [address], [place], [place], [address] , tel: [phone] [facility] Diabetes mellitus without mention of complication, type II or unspecified type, not stated as uncontrolledEs ophageal refluxPure hypercholester olemiaASTHMA,U NSPECIFIED TYPE, UNSPECIFIEDEss ential and other specified forms of tremorOsteoart hrosis, Unspecified, Unspecified SiteUrge incontinence 3 Jeanna Holliday. [address] [place] [address], [place], [place], [address], . [phone] Referring Provider: Miya Parra, [address] [place] [address], [place], [address] . tel:[phone] [facility] [address], [place], [place], [address] , tel: [phone] [facility] Diabetes mellitus without mention of complication, type II or unspecified type, not stated as uncontrolled 3 Jeanna Holliday. [address] [place] [address], [place], [place], [address], [place]. [phone] [facility], [address], [place], [place], [address] , tel: [phone] [facility] Cough due to bronchospasm 3 Jeanna Holldiay. [address] [place] [address], [place], [place], [address], . tel:[phone] Referring Provider: Miya Parra, [address] [place] [address], [place], [address] . tel:[phone] [facility], [address], [place], [place], [address] , tel: [phone] [facility] Diabetes mellitus without mention of complication, type II or unspecified type, not stated as uncontrolledEs ophageal refluxPure hypercholester olemiaPersonal history of malignant neoplasm of other parts of uterusUnspecif ied essential hypertensionHe patic abscess 2 Jeanna Holliday. [address] [place] [address], [place], [place], [address], [place]. tel:[phone] Referring Provider: Miya Parra, [address] [place] [address], [place], [address] . tel:[phone] [facility], [address], [place], [place], [address] , tel: [phone] [facility] Personal history of malignant neoplasm of other parts of uterusDiabetes mellitus without mention of complication, type II or unspecified type, uncontrolledUn specified essential hypertensionPu re hypercholester olemiaEssentia l and other specified forms of tremorUrge incontinenceMo rbid obesityConstip ation 2 Jeanna Holliday. [address] [place] [address], [place], [place], [address], [place]. tel:[phone] Referring Provider: Miya Parra, [address] [place] [address], [place], [address] . tel:[phone] [facility], [address], [place], [place], [address] , tel: [phone] [facility] Personal history of malignant neoplasm of other parts of uterusEssentia l and other specified forms of tremorUrge incontinenceGR OSS HEMATURIA Sep- 1 Jeanna Holliday. [address] [place] [address], [place], [place], [address], [place]. [phone] Referring Provider: Miya Parra, [address] [place] [address], [place], [address] . tel:[phone] [facility], [address], [place], [place], [address] , [place] tel:[phone] [facility] ASTHMA,UNSPECI FIED TYPE, UNSPECIFIEDDM Controlled, No ComplicationUn specified essential hypertensionPr e-operative examination, unspecified 1 Josemanuel Souza. [address] [place] [address], [address], [place], [address]. tel:[phone] Referring Provider: Miya Parra, [address] [place] [address] [address], [place], [address] . tel:[phone] [facility], [address], [place], [place], [address] , [place] tel:[phone] [facility] Esophageal refluxEsophage al refluxPure hypercholester olemiaDM Controlled, No ComplicationMo rbid obesityEssenti al and other specified forms of tremorEnthesop athy of hip regionPostmeno pausal bleeding 1 Jeanna Holliday. [address] [place] [address], [place], [place], [address], [place]. tel:[phone] Referring Provider: Miya Parra, [address] [place] [address], [place], [address] . tel:[phone] [facility], [address], [place], [place], [address] , [place] tel:[phone] [facility] Pure hypercholester olemiaFamily history of malignant neoplasm of gastrointestin al tract 1 Jeanna Holliday. [address] [place] [address], [place] [address], [place], [place], [address], [place]. tel:[phone] [facility], [address], [place], [place], [address] , [place] tel:[phone] [facility] Unspecified essential hypertensionMo rbid obesity Aug- 1 Jeanna Holliday. [address] [place] [address], [place] [address], [place], [place], [address], [place]. tel:[phone] [facility], [address], [place], [place], [address] , [place] tel: [phone] [facility] URGE INCONTINENCEOS TEOARTHROS NOS-UNSPECROUT INE BUCKLER AND LACER EXAMINATIONAST HMA NOSBENIGN HYPERTENSIONDM II WO CMP NT ST UNCNTRSCREEN MAL NEOP-CERVIXMIX ED HYPERLIPIDEMIA FM HX GENITAL MALIG NEC 9-201 0 Jeanna Miya. [address] [place] [address], [address], [place], [place], [address], [place]. tel:[phone] [facility], [address], [place], [place], [address] , [place] tel: [phone] [facility] TREMOR NECLONG-TERM USE MEDS NECND VAC STRPTCS PNEUMNI B Dec-0 7-200 9 Jeannasonali Holliday. [address] [place] [address], [address], [place], [place], [address], [place]. tel:[phone] [facility], [address], [place], [place], [address] , [place] tel: [phone] [facility] VACCIN FOR DISEASE NEC 3-200 9 Jeannasonali Holliday. [address] [place] [address], [address], [place], [place], [address], [place]. tel:[phone] [facility], [address], [place], [place], [address] , [place] tel: [phone] [facility] VACCIN FOR INFLUENZA 0 2-200 8 Jeannasonali Holliday. [address] [place] [address], [address], [place], [place], [address], [place]. tel:[phone] [facility], [address], [place], [place], [address] , [place] tel: [phone] [facility] CELLULITIS OF ARM Aug-0 6-200 8 Bird Toscano. [address] [facility], [place], [place], [address]. tel:[phone] [facility], [address], [place], [place], [address] , [place] tel: [phone] [facility] PURE HYPERCHOLESTER OLEM Aug-0 3-200 8 Jeanna Miya. [address] [place] [address], [address], [place], [place], [address], [place]. tel:[phone] [facility], [address], [place], [place], [address] , [place] tel: [phone] [facility] ABN BLOOD CHEMISTRY NEC 4200 6 Jeannasonali Holliday. [address] [place] [address], [address], [place], [place], [address], [place]. tel: [phone] [facility], [address], [place], [place], [address] , [place] tel: [phone] [facility] JOINT PAIN-SHLDER 6 Jeannasonali Holliday. [address] [place] [address], [address], [place], [place], [address], [place]. tel:[phone] [facility], [address], [place], [place], [address] , [place] tel: [phone] [facility] CONTUSION OF FOOTCONTUSION LEG NOS 9 4 Bird Dorcas. [address] [facility], [place], [place], [address]. tel: [phone] [facility], [address], [place], [place], [address] , [place] tel: [phone] [facility] BREAST DISORDERS NEC 2-200 2 Bird Toscano. [address] [facility], [place], [place], [address]. tel:[phone] [facility], [address], [place], [place], [address] , [place] tel: [phone] [facility] GYNECOLOGIC EXAMINATION 2 Jeanna Holliday. [address] [place] [address], [address], [place], [place], [address], [place]. tel:[phone] [facility], [address], [place], [place], [address] , [place] tel: [phone] [facility] JOINT PAIN-L/LEG 2 Conversion Doctor. [address], [place], [address], [place]. [facility], [address], [place], [place], [address] , [place] tel: [phone] [facility] CHEST PAIN NOSSLEEP APNEA NOS 3200 1 Jeanna Holliday. [address] [place] [address], [place] [address], [place], [place], [address], [place]. tel: [phone] [facility], [address], [place], [place], [address] , [place] tel: [phone] [facility] ANXIETY STATE NEC 200 1 Jeanna Holliday. [address] [place] [address], [place] [address], [place], [place], [address], [place]. tel:[phone] [facility], [address], [place], [place], [address] , [place] tel: [phone] [facility] VACCINATION FOR TD-DTHORMONE REPLACE POSTMENOLOCAL SKIN INFECTION NOS 1 Jeannasonali Holliday. [address] [place] [address], [place] [address], [place], [place], [address], [place]. tel: [phone] [facility], [address], [place], [place], [address] , [place] tel: [phone] [facility] STOMACH FUNCTION DIS NECDERMATOMYCO SIS NOS 9200 1 Jeannasonali Holliday. [address] [place] [address], [place] [address], [place], [place], [address], [place]. tel: [phone] [facility], [address], [place], [place], [address] , [place] tel: [phone] [facility] OTH URINRY INCONTINENCE 9199 9 Jeannasonali Holliday. [address] [place] [address], [place] [address], [place], [place], [address], [place]. tel:[phone] Family History Family Member Type Diagnosis Age At Onset Father Problem hypercholesterolemia Father Problem (finding) osteoarthritis Father Problem Renal disease Mother Problem (finding) malignant melanoma Sister Problem (finding) malignant neoplasm of u terus 58 Brother Problem (finding) asthma Father Problem (finding) hypertension Brother Problem (finding) diabetes melli tus in first degree relative Sister Problem (finding) Obesity Father Problem (finding) Obesity Father Problem (finding) coronary arterioscleros is Brother Problem (finding) Obesity Sister Problem hypertension Sister Problem (finding) Hearing impairment Brother Problem (finding) osteoarthritis Father Problem (finding) diabetes melli tus in first degree relative Brother Problem (finding) Allergies Brother Problem (finding) coronary arterioscleros is Sister Problem hypercholesterolemia Brother Problem (finding) raised blood lipids Mother Problem (finding) osteoporosis Father Problem (finding) stroke Brother Problem (finding) Irritable bowel syndrom e Brother Problem (finding) hypertension Father Problem (finding) pulmonary emboli Mother Problem (finding) migraine Mother Problem (finding) cancer of colon (Cause Of ) Brother Problem Renal disease Brother Problem (finding) Hearing deficiency Immunizations Vaccine Date Status Comments Fluzone High-Dose Trivalent, preservative free administered Note: Pola Mcallister rce: Other Registry Tdap administered Note: [facility] ; Source: Other Registry Moderna COVID19 Vaccine, 0.5 mL per dose, 2 doses, administered 28 days apart administered Note: munira ; Leyla ce: Other Provider influenza, high-dose seasona l, quadrivalent, 0.7mL dose, preservative free administered Note: Munira ; Leyla ce: Other Provider Respiratory syncytial virus (RSV), vaccine, recombinant, protein subunit RSV prefusion F, adjuvant reconstituted, 0.5 mL, preservative free administered Note: Munira ; May urce: Other Provider influenza, high-dose seasona l, quadrivalent, .7mL dose, preservative free administered Note: munira ; Leyla ce: Other Provider RentersQ COVID19 Vaccine, 0.3mL per dose, 2 doses, administered 21 days apart administered Note: munira ; Leyla ce: Other Provider Moderna COVID19 Vaccine, 0.5 mL per dose, 2 doses, administered 28 days apart administered Note: munira Mayer ce: Other Provider Moderna COVID19 Vaccine, 0.5 mL per dose, 2 doses, administered 28 days apart administered Note: Munira Mayer ce: Other Provider Flublok, quadrivalent, preservative free, 0.5mL dosage administered Source: New Immunization Record Moderna COVID19 Vaccine, 0.5 mL per dose, 2 doses, administered 28 days apart administered Source: Other Provid er Moderna COVID19 Vaccine, 0.5 mL per dose, 2 doses, administered 28 days apart administered Source: Other Provid er Fluzone High-Dose, high dose , preservative free administered Note: Mario's ; Source : Other Provider Fluzone Quad, preservative free, split virus, 0.5mL dosage administered Source: Other Provider Fluzone-Flulaval Quad, preservative free, split virus, 0.5mL dosage administered Source: Other Provid er SHINGRIX (Zoster vaccine recombinant, adjuvanted) administered Source: Other P rovider SHINGRIX (Zoster vaccine recombinant, adjuvanted) administered Source: Other P rovider Pneumococcal polysaccharide PPV23 administered Source: New Immuniza tion Record Fluzone Quad , spli t virus, 0.5mL dosage administered Source: Other Regist ry Influenza, injectable, quadrivalent, 0.5mL dosage administered Source: Other Provider Pneumococcal conjugate PCV 13 administere d Note: shop [employer] save ; Source: Other Provider Influenza, seasonal, injecta ble (3 yrs or older) administered Source: Source Unspe cified Tdap (Boostrix r) administered Source: Radha w Immunization Record Fluzone administered Source: New Imm unization Record Flu (split) (3 yrs or older) administered Source: New Immunization Record Flu (split) (3 yrs or older) administered Source: New Immunization Record Td, preservative free, (7 yr s and older) administered Source: New Immuniza tion Record 23167 - Pneumococcal_PPV23 administered S ource: Source Unspecified 95242 - Zoster_Shingles administered Sour ce: Source Unspecified 25607 - Influenza administered Source: So urce Unspecified 61670 - TD administered Source: Source Unspecified Payers Payer name Insurance type Covered democrat ID Authoriza tion(s) [employer] MDCR [facility] [id number] 0 AETNA MDCR [facility] [phone] 0 AETNA [facility] [phone] Social History Type Description Quantity Date Captured Comments Alcohol Use Details Unknown Caffeine Use Details Unknown Tobacco Use Status No Information Smoking Status No Information Sex Female Sexual Orientation Straight or heterosexual Gender Identity Female Chief Complaint And Reason For Visit No Information Reason For Referral Reason For Referral No Information Plan Of Treatment Date Type Action Status Goal Dietary manageme nt education, guidance, and counseling completed Goal Dietary manageme nt education, guidance, and counseling completed Goal Dietary manageme nt education, guidance, and counseling completed Goal Dietary manageme nt education, guidance, and counseling completed Goal Dietary manageme nt education, guidance, and counseling completed Goal Dietary manageme nt education, guidance, and counseling completed Goal Dietary manageme nt education, guidance, and counseling completed Goal Dietary manageme nt education, guidance, and counseling completed Referral Referred To: Bebeto Yang [address] [place], [place], [id number] [phone] Ordered: Referrals: Obstetrics and Gynecology. Bebeto Yang. Evaluation/diagnostic/treatment - Level 3 ordered Referral Referred To: GEOVANNY WATTS [address] [place], [address] [phone] Ordered: Referrals: Podiatry. GEOVANNY WATTS. Evaluation/diagnostic/treatment - Level 3 ordered Referral Referred To: LISA MAXWELL Ordered: Referrals: Ophthalmology. LISA MAXWELL. Evaluation/diagnostic/treatment - Level 3 ordered Referral Referred To: Bebeto Yang MD [address] [facility] [address] [place], [address] [phone] Ordered: Referrals: Obstetrics. Bebeto Yang MD. Evaluation/diagnostic/treatment - Level 3 Appointment date/timeframe: 02/23/2020 ordered Referral Referred To: DARIN CARRERA Ordered: Referrals: Dermatology. DARIN CARRERA. Evaluation/diagnostic/treatment - Level 3 Appointment date/timeframe: 08/15/2019 ordered Referral Referred To: Darin Murray MD [address] [facility]
[address] [place], [address] [phone] Ordered: Referrals: Dermatology. Darin Murray MD. Evaluate and treat - Level 2 Appointment date/timeframe: 07/17/2019 ordered Referral Referred To: [address] [facility] [address] [place], [address] [phone] Ordered: Home sleep study Appointment date/timeframe: 3 Months ordered Referral Referred To: [address] [place], [address] [phone] Ordered: TTE W/DOPPLER, COMPLETE Appointment date/timeframe: 1 Month ordered Referral Ordered: Chest Xray, 2 Views Appointment date/timeframe: 3 Months ordered Referral Referred To: David Skinner [address] [facility] [address] [place], [address] [phone] Ordered: Referrals: Dermatology. David Skinner. Evaluate and treat - Level 2 Appointment date/timeframe: 05/04/2019 ordered Referral Referred To: Anmol Aranda MD [address] [place], [address] [phone] Ordered: Referrals: Dermatology. Anmol Aranda MD. Evaluate and treat - Level 2 ordered Referral Referred To: Andre Flores [phone] Ordered: Referrals: Ophthalmology. Andre Flores. Evaluation/diagnostic/treatment - Level 3 ordered Appointment Contreras, [place] BOOKED History Of Present Illness Encounter Date Complaint History Of Prese nt Illness Chronic Conditions *See Chronic Conditions [facility] 6 month follow up Medicare preventive The patient has not felt depressed and has had interest and pleasure doing things recently. Functional Status: (Functional status has not changed) on 08/11/2023. Cognitive Status: (Cognitive status has not changed) on 08/11/2023. The ''Up and Go'' test took less than 30 seconds andthe patient does not need help with activities of daily living. The patient is at risk for falls. The patient has not fallen in the last year. The fall(s) did not result in injury. Patient's activity level is sedentary. The patient has smoke detectors, carbon monoxide detectors, electric heating in the home. The patient does not have firearms in the home. Patient's home has not been tested for radon. Patient reports using a seatbelt in vehicles. Patient denies recent weight gain. Patient denies recent weight loss. Relevant history is negative for tobacco use and alcohol use. Chronic Conditions *See Chronic Conditions [facility] follow up Patient encounter Chief complain t: follow up. Chronic Conditions *See Chronic Conditions [facility] Chronic Conditions *See Chronic Conditions [facility] follow up FOLLOW UP Chronic Conditions *See Chronic Conditions [facility] FOLLOW UP (comments) She is sche duled to see the canal structure operator tomorrow. She has been having right ankle pain since December. She was trying to wear strap shoes. She feels like her arch has fallen. She has been trying to wear comfortable tennis shoes. No orthotics. She has applied menthol with some improvement. Medicare preventive The patient has not felt depressed and has had interest and pleasure doing things recently. Functional Status: (Functional status has not changed) on 09/30/2020. Cognitive Status: (Cognitive status has not changed) on 09/30/2020. The ''Up and Go'' test took less than 30 seconds and the patient does not need help with activities of daily living. The patient is at risk for falls. The patient has not fallen in the last year. The fall(s) did not result in injury. Patient's activity level is sedentary. The patient has smoke detectors, carbon monoxide detectors, electric heating in the home. The patient does not have firearms in the home. Patient's home has not been tested for radon. Patient reports using a seatbelt in vehicles. Patient denies recent weight gain. Patient denies recent weight loss. Patient reports taking a vitamin D supplement. Relevant history is negative for tobacco use and alcohol use. Chronic Conditions *See Chronic Conditions HPI follow up follow up Chronic Conditions *See Chronic Conditions HPI Studies Reviewed TTE W/DOPPLER, COMPLETE performed on 05/24/2019. Edema, orthopnea, and paroxysmal nocturnal dyspnea. Medicare preventive (comments) P atient health information sheet reviewed and EHR updated. Medicare wellness check-up form completed and reviewed. Medicare preventive The ''Up and Go'' test took less than 30 seconds and the patient does not need help with activities of daily living. The patient is at risk for falls. The patient has not fallen in the last year. The fall(s) did not result in injury. Patient's activity level is sedentary. The patient has smoke detectors, carbon monoxide detectors, electric heating in the home. The patient does not have firearms in the home. Patient's home has not been tested for radon. Patient reports using a seatbelt in vehicles. Patient denies recent weight gain. Patient denies recent weight loss. Relevant history is negative for tobacco use and alcohol use. Chronic Conditions *See Chronic Conditions HPI Functional Status Date Functional Assessmen t No Information Instructions Date Instruction Additional Infor mation Please get the Flu a nd newest COVID booster when available. Related to Immunization counseling Your maintenance inh aler is Arnuity and should be used daily regardless if your breathing is doing well.You rescue inhaler is Albuterol and should be used when you are having symptoms such as shortness of breath or wheezing. Please followup if you are using rescue inhaler more than twice a week because this means that your asthma is not well controlled and we need to adjust your maintenance inhaler.Avoid asthma triggers such as dust, pollen, mold, and cold air. Control allergy symptoms. Related to Mild intermittent asthma, uncomplicated Your cholesterol was elevated in July; LDL 111 with goal less than 70.Continue Atorvastatin every day.Weight loss will help cholesterol levels.Try to increase exercise. Related to High cholesterol Your blood pressure is well controlled with Triamterene/HCTZ and Irbesartan.We discussed our goal is for you to drink at least 64 ounces of fluid a day; at least get 48 ounce per day. Related to Essential (primary) hypertension I am checking your A 1c.Continue Metformin.Check feet daily. Never go barefoot.Your eye exam is scheduled on May 09. Status: Able to self-manage condition. Goals: Your goal is to work on healthy eating habits. Barriers: No barriers to goal achievement have been identified. Related to Type 2 diab with mild nonp rtnop without macular edema, unsp Dietary management e ducation, guidance, and counseling Related to Body mass index (BMI) 32.0-32.9, adult Disease process You are doing well w ith occasional use of famotidine. Related to Gastro-esophageal reflux disease without esophagitis Continue to keep alb uterol on hand. Restart Flovent if your cough returns. Related to Mild intermittent asthma, uncomplicated I recommend increasi ng propranolol to twice a day. Related to Essential tremor Continue your care w ith Dr. Lucio annually. Related to Personal history of malignant neoplasm of other parts of uterus I am changing oxybut ynin 5mg twice a day to the Extended Release formula 10mg daily. Observe over the next month; we can increase to 15mg ER daily if needed. Related to Urge incontinence Your blood pressure is well controlled.Continue irbesartan and triamterene/HCTZ.Your blood counts and chemistry panel will be checked. Related to Essential (primary) hypertension Your mammogram was n ormal on 03/19/2023. Your next one is due in February of 2025. Your next tetanus booster is due now. Your last Tdap was given on 07/28/2013. Please go to your pharmacy to receive the Tdap booster. You received the Shingrix vaccine for shingles. You have completed both pneumonia vaccines; no further are needed. (Pneumovax 2016; Prevnar 2014)Continue to receive the Flu vaccine annually in the Fall.Thank you for keeping up with the COVID boosters and for having the new RSV vaccine. Related to Encntr for general adult medical exam w/o abnormal findings Continue daily atorv astatin.Your cholesterol will be checked. Related to High cholesterol Having diabetes incr eases your risk for cardiovascular disease.Atorvastatin and aspirin work together to help prevent new plaque build up in your arteries. Related to Atherosclerosis of aorta Continue metformin t wice a day.The A1c and urine test for protein will be checked. Related to Type 2 diabetes mellitus with other specified complication, without long-term current use of insulin Congratulations on y our slow weight loss!Take good care of your feet; inspect them daily. 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 Related to Family history of colon cancer Dietary management e ducation, guidance, and counseling Related to Body mass index (BMI) 33.0-33.9, adult Counseled on weight reduction Heart healthy diet Script sent in for F lovent 2 puffs twice daily.Continue Albuterol as needed. Related to Mild intermittent asthma, uncomplicated Please get the secon d bivalent COVID booster at local pharmacy. Related to Body mass index [BMI] 34.0-34.9, adult Continue Famotidine as needed. Avoid foods that aggravate your heartburn or reflux such as fatty foods, spicy foods, onions, mint, chocolate, carbonated drinks, and citrus/tomato based products. Avoid tobacco, caffeine, and alcohol. Do not eat 3 hours before lying down. You may need to elevate head of bed 4 to 8 inches. Avoid wearing tight clothing in the waist line. Related to Gastro-esophageal reflux disease without esophagitis Your blood pressure is controlled with Triamterene/HCTZ and Irbesartan. Related to Essential (primary) hypertension Your cholesterol was stable in April; LDL 99 with goal less than 70.Continue Atorvastatin daily and work on diet/exercise/weight loss. Related to High cholesterol Diabetes increases y our risk for vascular disease. Continue taking Aspirin and Atorvastatin daily to help prevent further plaque build up in your arteries. Related to Atherosclerosis of aorta I am checking your A 1c.Continue Metformin.Check feet daily. Never go barefoot.Thank you for staying up to date with eye exams! Related to Type 2 diab with mild nonp rtnop without macular edema, unsp Status: Able to self -manage condition. Goals: Your goal is to work on healthy eating habits. Barriers: No barriers to goal achievement have been identified. Related to Type 2 diabetes mellitus with other specified complication, without long-term current use of insulin Dietary management e ducation, guidance, and counseling Related to Body mass index (BMI) 34.0-34.9, adult Disease process Continue taking oxyb utynin twice a day. Related to Urge incontinence You do not need to u se albuterol very often. Related to Mild intermittent asthma, uncomplicated Propranolol is helpful when need ed. Related to Essential tremor Your last colonoscop y was completed on 02/04/2016; you were due in 2020.You wish to change to [facility]; please check with your insurance for a Provider in your plan. Related to Family history of colon cancer Thank you for having your eye exam on 04/28/2022. No retinopathy was seen! Great news! Related to Type 2 diab with mild nonp rtnop without macular edema, unsp Weight loss will hel p your blood pressure, cholesterol and diabetes. Related to Morbid obesity, unspecified obesity type Having diabetes incr eases your risk for cardiovascular disease.Atorvastatin and aspirin work together to help prevent new plaque build up in your arteries. Related to Atherosclerosis of aorta Your blood pressure is well controlled.Continue irbesartan and triamterene/HCTZ.I am checking blood counts and a chemistry panel today. Related to Essential (primary) hypertension I am checking the A1 c and urine test for protein today. Related to Type 2 diabetes mellitus with other specified complication, without long-term current use of insulin Continue metformin.C heck your feet daily; never go barefoot. Related to Polyneuropathy due to type 2 diabetes mellitus Continue daily atorv astatin.Your cholesterol will be checked today. Related to High cholesterol Fall Risk Prevention Urinary Incontinence Heart healthy diet Dietary management e ducation, guidance, and counseling Related to Body mass index (BMI) 35.0-35.9, adult I am referring you t timmy Watts. Please call [phone] to schedule. Related to Type 2 diabetes mellitus with diabetic polyneuropathy You are due for colo noscopy. Please notify us once you are ready to get it once your brother is better. Related to Family history of colon cancer Continue Famotidine as needed. Avoid foods that aggravate your heartburn or reflux such as fatty foods, spicy foods, onions, mint, chocolate, carbonated drinks, and citrus/tomato based products. Avoid tobacco, caffeine, and alcohol. Do not eat 3 hours before lying down. You may need to elevate head of bed 4 to 8 inches. Avoid wearing tight clothing in the waist line. Related to Gastro-esophageal reflux disease without esophagitis Your cholesterol was stable in September; LDL was 95 with goal <70.Continue Atorvastatin. Related to High cholesterol Your blood pressure is controlled with Irbesartan and Triamterene/HCTZ. Related to Essential (primary) hypertension I am checking your A 1c.Continue Metformin.Protect your feet; never go barefoot. Thank you for getting your eye exams.Status: Not meeting treatment plan goals. Goals: Your goal is to work on healthy eating habits. Barriers: No barriers to goal achievement have been identified. 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 Status: Meeting treatment plan goals. Related to Type 2 diabetes mellitus with other specified complication, without long-term current use of insulin Continue taking metf ormin twice a day.I am checking the A1c and urine test for protein today. Thank you for keeping up with your eye exams. Status: Meeting treatment plan goals. Goals: Your goal is to work on healthy eating habits. No barriers to goal achievement have been identified. Related to Polyneuropathy due to type 2 diabetes mellitus Use propranolol two or three times a day so it is easier to use eating utensils. Related to Essential tremor Continue taking famo tidine twice a day. Related to Gastro-esophageal reflux disease without esophagitis Your last colonoscop y was completed on 02/04/2016; you are due again in January. You will call me when it is closer to January about where you want to go. Related to Family history of colon cancer Congratulations on y our six pound weight loss!Weight loss will help your sugars, blood pressure and cholesterol. Related to Morbid obesity, unspecified obesity type Having diabetes incr eases your risk for cardiovascular disease.Atorvastatin and aspirin work together to help prevent new plaque build up in your arteries. Related to Atherosclerosis of aorta Your mammogram was n ormal on 02/13/2020; your next one is due in January of 2022.Your next tetanus booster is due in 2023.You received the Shingrix vaccine. You have completed both pneumonia vaccines; no further are needed. (Pneumovax 2016; Prevnar 2014)Continue to receive the Flu vaccine annually in the Fall.You are getting your second dose of COVID vaccine tomorrow. Related to Encounter for general adult medical examination without abnormal findings Continue daily atorv astatin.I am checking your cholesterol today. Related to High cholesterol Your blood pressure is controlled.Continue irbesartan and triamterene/HCTZ daily.I am checking your blood counts and chemistry panel today. Related to Essential (primary) hypertension Urinary Incontinence Counseled on weight reduction Fall Risk Prevention Dietary management e ducation, guidance, and counseling Related to Body mass index (BMI) 35.0-35.9, adult Propranolol is helpf ul, but you need to think to use it more often. Related to Essential tremor Your blood pressure is controlled.I am checking your blood counts and chemistry panel today. Related to Essential (primary) hypertension Continue taking famo tidine twice a day. Related to Gastro-esophageal reflux disease without esophagitis Slow weight loss km l help your sugars, blood pressure, reflux and cholesterol.Your first goal is to lose 20 pounds over the next year. Related to Morbid obesity, unspecified obesity type The A1c and urine te st for protein will be done today. Continue metformin and be consistent with diet and exercise. Related to Type 2 diabetes mellitus with other specified complication, without long-term current use of insulin Having diabetes incr eases your risk for cardiovascular disease. Atorvastatin helps to prevent new plaque build up in your arteries. Related to Atherosclerosis of aorta Check your feet jose martin y; never go barefoot. Status: Meeting treatment plan goals. Goals: Your goal is to work on healthy eating habits. Barriers: No barriers to goal achievement have been identified. Related to Polyneuropathy due to type 2 diabetes mellitus Continue to have reg ular eye exams to monitor the retina.It is important to keep your blood sugars under good control to prevent damage to the retina. You will call to schedule an eye exam. 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 Related to High cholesterol Heart healthy diet Urinary Incontinence Fall Risk Prevention Dietary management e ducation, guidance, and counseling Related to Body mass index (BMI) 36.0-36.9, adult Congratulations on l osing 4 pounds. Please get back on track with diet. Related to Morbid obesity, unspecified obesity type Continue Flonase and OTC antihistamine.Script sent in for Montelukast (Singulair) 10 mg at bedtime.I am hoping this will improve your cough. Related to Allergic rhinitis, unspecified [facility] Related to Cough Referral to Dr. Dorie ball. Please call [phone] to schedule. Related to Skin lesion of face Continue Oxybutynin. Related to Urge incontinence Continue Propanolol. Related to Essential tremor New diagnosis. You d o not feel vibration sensation the way you should in your feet.Protect your feet; never go barefoot. Related to Polyneuropathy due to type 2 diabetes mellitus Continue Atorvastatin. Related t o High cholesterol Your blood pressure is controlle d. Related to Essential (primary) hypertension I am checking A1c.Co ntinue Metformin.Thank you for getting your eye exam. We discussed new diagnosis of retinopathy.Status: Able to self-manage condition. Goals: Your goal is to be active. Barriers: No barriers to goal achievement have been identified. 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 Related to Family history of colon cancer We recommend:Flu Vac cine annually for everyone. Received in February.Tetanus vaccine every 10 years. Received 2013; booster due 2023.Shingles vaccines: Zostavax is a one time dose at 60; not recommended after 75. Received 2008. Shingrix is the new 2 dose vaccine given 2-6 months apart at 50. Received in 2017. No further needed.Pneumonia vaccines at 65. Received Prevnar 2014 and Pneumovax 2016; no further needed. Mammogram for breast cancer screening every year from 45-54 and every 2 years at 55 and older. Normal 09/02/18.Bone Density for osteoporosis screening at 65. Normal 2011.Please mail or bring us a copy of your Advanced directives. Related to Encounter for general adult medical examination without abnormal findings Followup with Dr. Sony ramirez as recommended. Related to History of endometrial cancer Disease process Dietary management e ducation, guidance, and counseling Related to Body mass index (BMI) 36.0-36.9, adult Assessments Type Assessment Date No Information Patient Care Teams Name Effective Dates (start - stop) Status Members No Information
== END 2024-07-28 08:09 | disposition home or self-care (01) ==
LOC: ANHIMG 08:12
PROVIDERS: PCP Internal Medicine; Visit Provider Internal Medicine
DX: Z12.31 Encounter for screening mammogram for malignant neoplasm of breast (principal)
CPT/HCPCS: 77063; 77067